=== PATIENT | male | born 1990 | race Caucasian/White ===

== ENCOUNTER 2018-08-30 16:11 | Inpatient (IN) | payer MEDICARE, OTHER ==
[2018-08-30 18:20] LABS: Basophils # (A) 0.1 k/uL (0-0.2); Basophils % (A) 1 %; Eosinophils # (A) 0.2 k/uL (0-0.7); Eosinophils % (A) 1 %; HGB 14.8 gm/dL (13.0-17.5); Lymphocytes # (A) 3.6 k/uL (1.0-4.8); Lymphocytes % (A) 27 %; MCH 30.7 pg (25.0-35.0); MCHC 32.9 g/dL (31.0-37.0); MCV 93.2 fL (80.0-100.0); Mean Platelet Volume 7.5; Monocytes % (A) 7 %; Neutrophils # (A) 8.4 k/uL (1.3-7.7); Neutrophils % (A) 62 %; Platelet Count 323 k/uL (150-450); RBC 4.83 m/uL (4.30-5.90); RDW 13.9 % (11.5-15.5); WBC 13.5 k/uL (3.8-10.6)
[2018-08-30 18:25] LABS: Appearance,Urine Clear (Clear); Bilirubin,Urine Negative (Negative); Blood,Urine Negative (Negative); Color,Urine Yellow; Glucose,Urine (UA) Negative (Negative); Ketones,Urine Negative (Negative); Leukocyte Esterase,Urine Negative (Negative); Nitrite,Urine Negative (Negative); PH, Urine 5.5 (5.0-8.0); Protein,Urine Trace (Negative); Specific Gravity,Urine 1.037 (1.001-1.035); Urobilinogen,Urine <2.0 mg/dL (<2.0)
[2018-08-30 18:28] LABS: Partial Thromboplastin Time 23.3 sec (22.0-30.0); Prothrombin Time 10.5 sec (9.0-12.0)
[2018-08-30 18:32] LABS: ALT 145 U/L (21-72); AST 71 U/L (17-59); African American GFR (CKD) >90 (>60 ml/min/1.73 sqM); Albumin 4.5 g/dL (3.5-5.0); Alcohol <10 mg/dL; Alkaline Phosphatase 62 U/L (38-126); Anion Gap 8 mmol/L; Blood Urea Nitrogen 11 mg/dL (9-20); Calcium 9.6 mg/dL (8.4-10.2); Carbon Dioxide 24 mmol/L (22-30); Chloride 110 mmol/L (98-107); Creatine Kinase 484 U/L (55-170); Glucose 115 mg/dL (74-99); Potassium 4.4 mmol/L (3.5-5.1); Sodium 142 mmol/L (137-145); Total Bilirubin 0.9 mg/dL (0.2-1.3); Total Protein 7.4 g/dL (6.3-8.2)
[2018-08-30 18:34] LABS: Amphetamine Screen,Urine Not Detected (NotDetected); Barbiturate Screen,Urine Not Detected (NotDetected); Benzodiazepines Screen,Urine Not Detected (NotDetected); Cocaine Screen,Urine Not Detected (NotDetected); Methadone Screen, Urine Not Detected (NotDetected); Opiate Screen,Urine Not Detected (NotDetected); Oxycodone Screen, Urine Not Detected (NotDetected); Phencyclidine Screen,Urine Not Detected (NotDetected); Tricyclic Antidepressant,Urine Not Detected (NotDetected); Urn Cannabinoid Scrn Detected (NotDetected)
[2018-08-30] MEDS ORDERED: SODIUM CHLORIDE 0.9% 1,000 ML IV ONE (18:59)
--- NOTE | 2018-08-30 18:59 | CT ---
EXAMINATION TYPE: CT brain wo con DATE OF EXAM: 08/30/2018 COMPARISON: None HISTORY: Altered mental status. CT DLP: 1201.4 mGycm. Automated Exposure Control for Dose Reduction was Utilized. TECHNIQUE: CT scan of the head is performed without contrast. FINDINGS: There is no acute intracranial hemorrhage, mass effect, or midline shift identified. The ventricles and sulci are within normal limits in size. The globes are intact and the visualized sin uses are clear. IMPRESSION: No acute intracranial hemorrhage, mass effect, or midline shift is seen.
--- NOTE | 2018-08-30 18:59 | XR ---
EXAMINATION TYPE: XR chest 2V DATE OF EXAM: 08/30/2018 COMPARISON: NONE HISTORY: Altered mental status, chest pain and shortness of breath TECHNIQUE: Frontal and lateral views of the chest are obtained. FINDINGS: There are overlying cardiac leads. Patient is rotated. There is no focal air space opacity, pleural effusion, or pneumothorax seen. The cardiac silhouette size is within normal limits. The osseous structures are intact. IMPRESSION: No acute cardiopulmonary process.
[2018-08-30] MEDS ORDERED: LACTULOSE 20 GM/30 ML CUP PO ONE (19:23)
[2018-08-30 19:25] LABS: Acetaminophen <10.0 ug/mL; Salicylate <1.0 mg/dL
--- NOTE | 2018-08-30 19:43 | ED ---
Psych HPI - General Chief Complaint: Psychiatric Symptoms Stated Complaint: Mental Health Time Seen by Provider: 08/30/18 16:37 Source: patient Mode of arrival: ambulatory - History of Present Illness Initial Comments: 28-year-old male with past medical history of previous brief psychotic event presents today with mother and father for chief complaint of hallucinations. 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 He cannot hear he does not hearing aids. Mother states that he has been saying that there is a devil inside of him and other people. He denies any suicidal or homicidal ideation but states he does not feel safe. She states that he has been acting bizarre and paranoid. She states he act this way last year around July and was discharged with diagnosis of psychosis. She states he was hospitalized at that time. She states he did elevation of his creatinine kinase, otherwise upon discharge in July she states there is no lab abnormalities to her knowledge. She states patient does get routine lab work done at Hospital. Mother denies patient take any medications. Patient denies taking her ingesting any medication attempt of suicide. Upon arrival patient is pleasant, he is able to write down responses. He is alert and oriented x 3, appearing well, nontoxic. However patient is stating that there are multiple to many personalities inside of him. At times his brain does not make sense, similar to word salad. Remaining review of systems negative patient is a chest pain shortness of breath nausea vomiting diarrhea abdominal pain headache dizziness stiffness or fever. - Related Data Home Medications Medication Instructions Recorded Confirmed No Known Home Medications 08/30/18 08/30/18 Allergies Allergy/AdvReac Type Severity Reaction Status Date / Time cefaclor [From Ceclor] Allergy Unknown Verified 08/30/18 16:53 Review of Systems ROS Statement: Those systems with pertinent positive or pertinent negative responses have been documented in the HPI. ROS Other: All systems not noted in ROS Statement are negative. 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 No nystagmus. There is normal conjunctiva bilaterally. No signs of icterus. Ears, nose, mouth and throat: There are moist mucous membranes and no oral lesions. Neck: The neck is supple, there is no tenderness or JVD. Cardiovascular: There is a regular rate and rhythm. No murmur, rub or gallop is appreciated. Respiratory: Lungs are clear to auscultation, respirations are non-labored, breath sounds are equal. No wheezes, stridor, rales, or rhonchi. Gastrointestinal: Soft, non-distended, non-tender abdomen without masses or organomegaly noted. There is no rebound or guarding present. No CVA tenderness. Bowel sounds are unremarkable. Musculoskeletal: Normal ROM, no tenderness. Strength 5/5. Sensation intact. Radial pulses equal bilaterally 2+. Neurological: A&O x 3. CN II-XII intact, aside from CN VIII, There are no obvious motor or sensory deficits. Coordination appears grossly intact. Speech is normal. Skin: Skin is warm and dry and no rashes or lesions are noted. Psychiatric: She is playing the air guitar, lip singing, smiling, pleasant Limitations: no limitations Course Vital Signs 08/30/18 08/30/18 16:22 18:19 Temperature 98.7 F 98.6 F Pulse Rate 107 H 105 H Respiratory 18 18 Rate Blood Pressure 182/125 147/87 O2 Sat by Pulse 95 98 Oximetry Medical Decision Making - Medical Decision Making . 28-year-old male presenting for psychosis via parents. Patient has auditory hallucinations. Patient tells me he has multiple personalities is too many within him. Patient appears well and nontoxic. Patient is hypertensive upon arrival. CT of the brain without any acute abnormalities. Patient does have slightly elevated ammonia levels. As well as transaminases. No evidence of liver failure. Negative salicylate and acetaminophen levels. Elevated creatinine kinase however urinalysis unremarkable. EKG no acute normality is troponin negative. Chest x-ray within normal limits. No lower extremity edema or evidence of shortness of breath and examination. Anion gap within normal limits. This time is unclear the cause the patient's psychosis, could be primary site gastric however was admitted to medicine for withdrawal of organic cause. I do not feel patient's ammonia level of 44 would cause encephalopathy however patient was given lactulose. Patient be reassessed. Patient neurological examination alert with no focal deficits. No signs of meningeal irritation or infection on exam. Patient abdominal exam benign lungs clear to auscultation. Patient was hypertensive upon arrival. Patient denies past medical history of hypertension. Patient not currently on any medication. Discussed the case with any provider Dr. Park revealed patient to be admitted to medicine with psychiatric consultation. Dr. Liang accepted admission and very patient in the emergency department. Patient was transferred to the floor in stable condition appearing well patient's parents were agreeable to admission at this time. - Lab Data Result diagrams: 08/30/18 18:08 08/30/18 18:08 Lab Results 08/30/18 08/30/18 08/30/18 Range/Units 18:08 18:08 18:08 WBC 13.5 H (3.8-10.6) k/uL RBC 4.83 (4.30-5.90) m/uL Hgb 14.8 (13.0-17.5) gm/dL Hct 45.0 (39.0-53.0) % MCV 93.2 (80.0-100.0) fL MCH 30.7 (25.0-35.0) pg MCHC 32.9 (31.0-37.0) g/dL RDW 13.9 (11.5-15.5) % Plt Count 323 (150-450) k/uL Neutrophils % 62 % Lymphocytes % 27 % Monocytes % 7 % Eosinophils % 1 % Basophils % 1 % Neutrophils # 8.4 H (1.3-7.7) k/uL Lymphocytes # 3.6 (1.0-4.8) k/uL Monocytes # 1.0 (0-1.0) k/uL Eosinophils # 0.2 (0-0.7) k/uL Basophils # 0.1 (0-0.2) k/uL PT (9.0-12.0) sec INR (<1.2) APTT (22.0-30.0) sec Sodium 142 (137-145) mmol/L Potassium 4.4 (3.5-5.1) mmol/L Chloride 110 H (98-107) mmol/L Carbon Dioxide 24 (22-30) mmol/L Anion Gap 8 mmol/L BUN 11 (9-20) mg/dL Creatinine 0.54 L (0.66-1.25) mg/dL Est GFR (CKD-EPI)AfAm >90 (>60 ml/min/1.73 sqM) Est GFR (CKD-EPI)NonAf >90 (>60 ml/min/1.73 sqM) Glucose 115 H (74-99) mg/dL Calcium 9.6 (8.4-10.2) mg/dL Total Bilirubin 0.9 (0.2-1.3) mg/dL AST 71 H (17-59) U/L ALT 145 H (21-72) U/L Alkaline Phosphatase 62 (38-126) U/L Ammonia 47 H (<30) umol/L Creatine Kinase 484 H (55-170) U/L Troponin I (0.000-0.034) ng/mL Total Protein 7.4 (6.3-8.2) g/dL Albumin 4.5 (3.5-5.0) g/dL Urine Color Urine Appearance (Clear) Urine pH (5.0-8.0) Ur Specific [place] (1.001-1.035) Urine Protein (Negative) Urine Glucose (UA) (Negative) Urine Ketones (Negative) Urine Blood (Negative) Urine Nitrite (Negative) Urine Bilirubin (Negative) Urine Urobilinogen (<2.0) mg/dL Ur Leukocyte Esterase (Negative) Salicylates mg/dL Urine Opiates Screen (NotDetected) Ur Oxycodone Screen (NotDetected) Urine Methadone Screen (NotDetected) Ur Propoxyphene Screen (NotDetected) Acetaminophen ug/mL Ur Barbiturates Screen (NotDetected) U Tricyclic Antidepress (NotDetected) Ur Phencyclidine Scrn (NotDetected) Ur Amphetamines Screen (NotDetected) U Methamphetamines Scrn (NotDetected) U Benzodiazepines Scrn (NotDetected) Urine Cocaine Screen (NotDetected) U Marijuana (THC) Screen (NotDetected) Serum Alcohol <10 mg/dL 08/30/18 08/30/18 08/30/18 Range/Units 18:08 18:08 18:08 WBC (3.8-10.6) k/uL RBC (4.30-5.90) m/uL Hgb (13.0-17.5) gm/dL Hct (39.0-53.0) % MCV (80.0-100.0) fL MCH (25.0-35.0) pg MCHC (31.0-37.0) g/dL RDW (11.5-15.5) % Plt Count (150-450) k/uL Neutrophils % % Lymphocytes % % Monocytes % % Eosinophils % % Basophils % % Neutrophils # (1.3-7.7) k/uL Lymphocytes # (1.0-4.8) k/uL Monocytes # (0-1.0) k/uL Eosinophils # (0-0.7) k/uL Basophils # (0-0.2) k/uL PT 10.5 (9.0-12.0) sec INR 1.0 (<1.2) APTT 23.3 (22.0-30.0) sec Sodium (137-145) mmol/L Potassium (3.5-5.1) mmol/L Chloride (98-107) mmol/L Carbon Dioxide (22-30) mmol/L Anion Gap mmol/L BUN (9-20) mg/dL Creatinine (0.66-1.25) mg/dL Est GFR (CKD-EPI)AfAm (>60 ml/min/1.73 sqM) Est GFR (CKD-EPI)NonAf (>60 ml/min/1.73 sqM) Glucose (74-99) mg/dL Calcium (8.4-10.2) mg/dL Total Bilirubin (0.2-1.3) mg/dL AST (17-59) U/L ALT (21-72) U/L Alkaline Phosphatase (38-126) U/L Ammonia (<30) umol/L Creatine Kinase (55-170) U/L Troponin I <0.012 (0.000-0.034) ng/mL Total Protein (6.3-8.2) g/dL Albumin (3.5-5.0) g/dL Urine Color Urine Appearance (Clear) Urine pH (5.0-8.0) Ur Specific [place] (1.001-1.035) Urine Protein (Negative) Urine Glucose (UA) (Negative) Urine Ketones (Negative) Urine Blood (Negative) Urine Nitrite (Negative) Urine Bilirubin (Negative) Urine Urobilinogen (<2.0) mg/dL Ur Leukocyte Esterase (Negative) Salicylates <1.0 mg/dL Urine Opiates Screen (NotDetected) Ur Oxycodone Screen (NotDetected) Urine Methadone Screen (NotDetected) Ur Propoxyphene Screen (NotDetected) Acetaminophen <10.0 ug/mL Ur Barbiturates Screen (NotDetected) U Tricyclic Antidepress (NotDetected) Ur Phencyclidine Scrn (NotDetected) Ur Amphetamines Screen (NotDetected) U Methamphetamines Scrn (NotDetected) U Benzodiazepines Scrn (NotDetected) Urine Cocaine Screen (NotDetected) U Marijuana (THC) Screen (NotDetected) Serum Alcohol mg/dL 08/30/18 Range/Units 18:14 WBC (3.8-10.6) k/uL RBC (4.30-5.90) m/uL Hgb (13.0-17.5) gm/dL Hct (39.0-53.0) % MCV (80.0-100.0) fL MCH (25.0-35.0) pg MCHC (31.0-37.0) g/dL RDW (11.5-15.5) % Plt Count (150-450) k/uL Neutrophils % % Lymphocytes % % Monocytes % % Eosinophils % % Basophils % % Neutrophils # (1.3-7.7) k/uL Lymphocytes # (1.0-4.8) k/uL Monocytes # (0-1.0) k/uL Eosinophils # (0-0.7) k/uL Basophils # (0-0.2) k/uL PT (9.0-12.0) sec INR (<1.2) APTT (22.0-30.0) sec Sodium (137-145) mmol/L Potassium (3.5-5.1) mmol/L Chloride (98-107) mmol/L Carbon Dioxide (22-30) mmol/L Anion Gap mmol/L BUN (9-20) mg/dL Creatinine (0.66-1.25) mg/dL Est GFR (CKD-EPI)AfAm (>60 ml/min/1.73 sqM) Est GFR (CKD-EPI)NonAf (>60 ml/min/1.73 sqM) Glucose (74-99) mg/dL Calcium (8.4-10.2) mg/dL Total Bilirubin (0.2-1.3) mg/dL AST (17-59) U/L ALT (21-72) U/L Alkaline Phosphatase (38-126) U/L Ammonia (<30) umol/L Creatine Kinase (55-170) U/L Troponin I (0.000-0.034) ng/mL Total Protein (6.3-8.2) g/dL Albumin (3.5-5.0) g/dL Urine Color Yellow Urine Appearance Clear (Clear) Urine pH 5.5 (5.0-8.0) Ur Specific [place] 1.037 H (1.001-1.035) Urine Protein Trace H (Negative) Urine Glucose (UA) Negative (Negative) Urine Ketones Negative (Negative) Urine Blood Negative (Negative) Urine Nitrite Negative (Negative) Urine Bilirubin Negative (Negative) Urine Urobilinogen <2.0 (<2.0) mg/dL Ur Leukocyte Esterase Negative (Negative) Salicylates mg/dL Urine Opiates Screen Not Detected (NotDetected) Ur Oxycodone Screen Not Detected (NotDetected) Urine Methadone Screen Not Detected (NotDetected) Ur Propoxyphene Screen Not Detected (NotDetected) Acetaminophen ug/mL Ur Barbiturates Screen Not Detected (NotDetected) U Tricyclic Antidepress Not Detected (NotDetected) Ur Phencyclidine Scrn Not Detected (NotDetected) Ur Amphetamines Screen Not Detected (NotDetected) U Methamphetamines Scrn Not Detected (NotDetected) U Benzodiazepines Scrn Not Detected (NotDetected) Urine Cocaine Screen Not Detected (NotDetected) U Marijuana (THC) Screen Detected H (NotDetected) Serum Alcohol mg/dL Disposition Clinical Impression: Psychosis, Hallucinations, Increased ammonia level, Elevated blood pressure reading, Elevated transaminase level Disposition: ADMITTED IP TO THIS [facility] Condition: Stable Is patient prescribed a controlled substance at d/c from ED?: No Time of Disposition: 20:05
[2018-08-30] MEDS: SODIUM CHLORIDE 0.9% 1,000 ML IV SCH (19:56)
[2018-08-30] MEDS ORDERED: NALOXONE 0.4 MG/ML 1 ML VIAL IV PRN (20:02)
--- NOTE | 2018-08-31 03:07 | P.HPIM ---
History of Present Illness H&P Date: 08/30/18 Chief Complaint: Bizarre behavior 28-year-old male with history of brief psychosis Patient was brought into the hospital by his mother due to bizarre behavior and hallucinations. Patient is legally deaf since age of 6 months. Mother helped with communication with the ER doc. At time of my evaluation family was gone, information was obtained by discussing the case with the ER doctor's, and communicating with the patient using writing method. Patient indicated that he has thoughts and ideas and has had and he knows everything and he Indicates with the devil and that he has multiple personalities. He currently denies any physical complaints of chest pain trouble breathing fevers chills nausea abdominal pain muscle aches. He denies any substance abuse. In the ED was found to have elevated CK level and slightly elevated liver enzymes. His blood pressure readings were also high with no history of hypertension. Plan was to [facility] the [facility] to [facility] monitoring 24 hours follow-up on blood work and blood pressure. Once he is stable stable he would be evaluated by psychiatry for possible admission to the mental health unit Review of Systems Pertinent positives as noted in HPI. All other systems were reviewed and are negative Past Medical History Past Medical History: No Reported History Additional Past Medical History / Comment(s): spinal meningitis History of Any Multi-Drug Resistant Organisms: None Reported Past Surgical History: No Surgical Hx Reported Past Anesthesia/Blood Transfusion Reactions: No Reported Reaction Past Psychological History: No Psychological Hx Reported Smoking Status: Current every day smoker Past Alcohol Use History: Occasional Past Drug Use History: Marijuana - Past Family History Father Family Medical History: No Reported History Medications and Allergies Home Medications Medication Instructions Recorded Confirmed Type No Known Home Medications 08/30/18 08/30/18 History Allergies Allergy/AdvReac Type Severity Reaction Status Date / Time cefaclor [From Ceclor] Allergy Unknown Verified 08/30/18 16:53 Physical Exam Vitals: Vital Signs Temp Pulse Pulse Resp BP BP Pulse Ox 08/30/18 22:25 99 F 102 H 20 169/99 94 L 08/30/18 21:59 98.2 F 92 18 149/87 98 08/30/18 18:19 98.6 F 105 H 18 147/87 98 08/30/18 16:22 98.7 F 107 H 18 182/125 95 Intake and Output 0508/30/18 08/31/18 14:59 22:59 06:59 Other: Weight 175.177 kg Constitutional: No acute distress, patient is legally deaf and communicates by writing Eyes: Anicteric sclerae, moist conjunctiva, no lid-lag Pupils equal round reactive to light ENMT: NC/AT Oropharynx clear, no erythema, or exudates Neck: Supple, FROM, no masses, or JVD No carotid bruits No thyromegaly Lungs: Clear to auscultation Clear to percussion Normal respiratory effort, no accessory muscle use Cardiovascular: Heart regular in rate and rhythm, No murmurs, gallops, or rubs No peripheral edema Abdominal: Soft Nontender, no guarding, rebound or rigidity Abdomen moving with respiration Normoactive bowel sounds No hepatomegaly, No splenomegaly No palpable mass No abdominal wall hernia noted Skin: Normal temperature, tone, texture, turgor No induration No subcutaneous nodules No rash, lesions No ulcers Extremities: No digital cyanosis No clubbing Pedal pulses intact and symmetrical Radial pulses intact and symmetrical No calf tenderness Psychiatric: Alert and oriented to person, place and time Patient looks bad night and anxious fair judgment Neuro Muscles Strength 5/5 in all 4 extremities Sensation to light touch grossly present throughout Cranial nerves II-XII grossly intact, except for cranial nerve VIII patient is legally deaf No focal sensory deficits Lymphatics: no palpable cervical or supraclavicular , or inguinal lymph nodes Results CBC & Chem 7: 08/30/18 18:08 08/30/18 18:08 Labs: Abnormal Lab Results - Last 24 Hours (Table) 08/30/18 08/30/18 08/30/18 Range/Units 18:08 18:08 18:08 WBC 13.5 H (3.8-10.6) k/uL Neutrophils # 8.4 H (1.3-7.7) k/uL Chloride 110 H (98-107) mmol/L Creatinine 0.54 L (0.66-1.25) mg/dL Glucose 115 H (74-99) mg/dL AST 71 H (17-59) U/L ALT 145 H (21-72) U/L Ammonia 47 H (<30) umol/L Creatine Kinase 484 H (55-170) U/L Ur Specific [place] (1.001-1.035) Urine Protein (Negative) U Marijuana (THC) Screen (NotDetected) 08/30/18 Range/Units 18:14 WBC (3.8-10.6) k/uL Neutrophils # (1.3-7.7) k/uL Chloride (98-107) mmol/L Creatinine (0.66-1.25) mg/dL Glucose (74-99) mg/dL AST (17-59) U/L ALT (21-72) U/L Ammonia (<30) umol/L Creatine Kinase (55-170) U/L Ur Specific [place] 1.037 H (1.001-1.035) Urine Protein Trace H (Negative) U Marijuana (THC) Screen Detected H (NotDetected) Thrombosis Risk Factor Assmnt - Choose All That Apply Any of the Below Risk Factors Present?: Yes Each Factor Represents 1 point: Obesity (BMI >25) Other Risk Factors: No Other congenital or acquired thrombophilia - If yes, enter type in comment: No Thrombosis Risk Factor Assessment Total Risk Factor Score: 1 Thrombosis Risk Factor Assessment Level: Low Risk Assessment and Plan Assessment: 28-year-old male with history of psychosis. Patient admitted under observation with anticipated length symptoms in 48 hours to rule out rhabdomyolysis due to elevation of creatine kinase. 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 He is reporting some hallucinations he feels like a double his insight him and he has multiple personalities Plan: Bizarre behavior and hallucinations Legally deaf History of brief psychosis Elevated creatinine kinase Elevated blood pressure readings without history of hypertension Slightly elevated liver enzymes denies any alcohol intake or drug abuse Plan IV fluid hydration Monitor vital signs Follow-up creatinine kinase level Follow-up liver enzymes supple Psychiatry evaluation Once patient is medically cleared he will be transferred to the psych unit Patient denies any suicidal or homicidal ideation Surrogate decision-maker: Patient mother CODE STATUS: Full code DVT prophylaxis: Low risk and ambulatory Discussed with: Patient, ER, RN Anticipated discharge: Less than 48- hours Anticipated discharge place: Psych unit A total of 60 minutes was spent on the care of this complex patient more than 50% of the time was spent in counseling and care coordination.
[2018-08-31] MEDS: SODIUM CHLORIDE 0.9% 1,000 ML IV SCH ×3 (09:45→22:04)
[2018-08-31 10:12] LABS: African American GFR (CKD) >90 (>60 ml/min/1.73 sqM); Anion Gap 9 mmol/L; Blood Urea Nitrogen 10 mg/dL (9-20); Carbon Dioxide 23 mmol/L (22-30); Chloride 109 mmol/L (98-107); Glucose 91 mg/dL (74-99); Sodium 141 mmol/L (137-145); Total Bilirubin 1.8 mg/dL (0.2-1.3)
[2018-08-31 10:21] LABS: Potassium 4.2 mmol/L (3.5-5.1); Total Protein 7.5 g/dL (6.3-8.2)
[2018-08-31 10:22] LABS: ALT 157 U/L (21-72); AST 88 U/L (17-59); Albumin 4.5 g/dL (3.5-5.0); Alkaline Phosphatase 53 U/L (38-126); Creatine Kinase 397 U/L (55-170)
[2018-08-31] MEDS ORDERED: PANTOPRAZOLE 40 MG TABLET PO STA (14:39)
[2018-08-31] MEDS ORDERED: hydrALAZINE HCL 20 MG/ML 1 ML VIAL IVP STA (14:40)
--- NOTE | 2018-08-31 14:43 | P.PN ---
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 Mother is present is able to communicate via sign language. Patient still having hallucinations and communicating with individuals that are not visible. Patient's mother does report that he has had issues with his stomach pain worse with certain foods such as tomatoes or anything acidic. Review of records indicates patient's blood pressure is been elevated, patient does not go to see a doctor regularly. Liver studies also elevated, no acute events overnight Objective - Vital Signs Vital signs: Vital Signs Temp 99.0 F 08/31/18 12:39 Pulse 81 08/31/18 12:39 Resp 20 08/31/18 12:39 BP 154/109 08/31/18 13:50 Pulse Ox 96 08/31/18 12:39 Intake & Output 08/30/18 08/31/18 08/31/18 18:59 06:59 18:59 Intake Total 1000 Balance 1000 Weight 178.443 kg 175.177 kg Intake: Oral 1000 Other: # Voids 5 4 - Exam Constitutional: No acute distress, conversant, pleasant Eyes: Anicteric sclerae, moist conjunctiva, no lid-lag, PERRLA ENMT: NC/AT,Oropharynx clear, no erythema, exudates Neck:Supple, FROM, no masses, or JVD, No carotid bruits; No thyromegaly Lungs: Clear to auscultation, Clear to percussion, Normal respiratory effort, no accessory muscle use Cardiovascular: Heart regular in rate and rhythm, No murmurs, gallops, or rubs no peripheral edema Abdominal: Soft Nontender, nom distended, no guarding, no rebound or rigidity, Normoactive bowel sounds No hepatomegaly, No splenomegaly, No palpable mass No abdominal wall hernia noted Skin: Normal temperature, tone, texture, turgor, No induration No subcutaneous nodules, No rash, lesions, No ulcers Extremities:No digital cyanosis No clubbing, Pedal pulses intact and symmetrical Radial pulses intact and symmetrical Normal gait and station, No calf tenderness Psychiatric: Having hallucinations Neuro: Muscles Strength 5/5 in all 4 extremities, Sensation to light touch grossly present throughout, Cranial nerves II-XII grossly intact. No focal sensory deficits - Labs CBC & Chem 7: 08/30/18 18:08 08/31/18 08:11 Labs: Abnormal Lab Results - Last 24 Hours (Table) 08/30/18 08/30/18 08/30/18 Range/Units 18:08 18:08 18:08 WBC 13.5 H (3.8-10.6) k/uL Neutrophils # 8.4 H (1.3-7.7) k/uL Chloride 110 H (98-107) mmol/L Creatinine 0.54 L (0.66-1.25) mg/dL Glucose 115 H (74-99) mg/dL Total Bilirubin (0.2-1.3) mg/dL AST 71 H (17-59) U/L ALT 145 H (21-72) U/L Ammonia 47 H (<30) umol/L Creatine Kinase 484 H (55-170) U/L Ur Specific [place] (1.001-1.035) Urine Protein (Negative) U Marijuana (THC) Screen (NotDetected) 08/30/18 08/31/18 Range/Units 18:14 08:11 WBC (3.8-10.6) k/uL Neutrophils # (1.3-7.7) k/uL Chloride 109 H (98-107) mmol/L Creatinine 0.59 L (0.66-1.25) mg/dL Glucose (74-99) mg/dL Total Bilirubin 1.8 H (0.2-1.3) mg/dL AST 88 H (17-59) U/L ALT 157 H (21-72) U/L Ammonia (<30) umol/L Creatine Kinase 397 H (55-170) U/L Ur Specific [place] 1.037 H (1.001-1.035) Urine Protein Trace H (Negative) U Marijuana (THC) Screen Detected H (NotDetected) Assessment and Plan (1) Essential hypertension Narrative/Plan: * Blood pressures continue to be elevated we will initiate chlorthalidone regimen Current Visit: Yes Status: Acute Code(s): I10 - ESSENTIAL (PRIMARY) HYPERTENSION SNOMED Code(s): 13307859 (2) GERD (gastroesophageal reflux disease) Narrative/Plan: * PPI therapy with Protonix will be initiated today Current Visit: Yes Status: Acute Code(s): K21.9 - GASTRO-ESOPHAGEAL REFLUX DISEASE WITHOUT ESOPHAGITIS SNOMED Code(s): 145222872 (3) Elevated transaminase level Narrative/Plan: * We'll order right upper quadrant ultrasound to rule out hepatobiliary disease would expect some fatty liver * Patient has an elevated T bili at 1.8 despite being on IV fluids * We'll make patient nothing by mouth at midnight Current Visit: Yes Status: Acute Code(s): R74.0 - NONSPEC ELEV OF LEVELS OF TRANSAMNS & LACTIC ACID DEHYDRGNSE SNOMED Code(s): 888612380 (4) Hyperbilirubinemia Narrative/Plan: * Continue IVF and monitor with recheck tomorrow Current Visit: Yes Status: Acute Code(s): E80.6 - OTHER DISORDERS OF BILIRUBIN METABOLISM SNOMED Code(s): 41212726 (5) Hallucinations Narrative/Plan: * Awaiting psychiatric evaluation Current Visit: Yes Status: Acute Code(s): R44.3 - HALLUCINATIONS, UNSPECIFIED SNOMED Code(s): 6458744 Plan: Disposition anticipated discharge 1-2 days
[2018-08-31] MEDS: amLODIPine 5 MG TAB PO SCH (22:02)
[2018-08-31] MEDS: MELATONIN 3 MG TABLET PO SCH (22:02)
[2018-08-31] MEDS ORDERED: HALOPERIDOL LACTATE 5 MG/ML 1 ML VIAL IM STA (22:45)
[2018-09-01] MEDS ORDERED: HALOPERIDOL LACTATE 5 MG/ML 1 ML VIAL IM STA (02:23)
[2018-09-01] MEDS: PANTOPRAZOLE 40 MG TABLET PO SCH (08:17)
[2018-09-01] MEDS: amLODIPine 5 MG TAB PO SCH (08:17)
[2018-09-01] MEDS: CHLORTHALIDONE 25 MG TAB PO SCH (08:17)
--- NOTE | 2018-09-01 08:28 | US ---
EXAMINATION TYPE: US abdomen limited DATE OF EXAM: 09/01/2018 COMPARISON: NONE CLINICAL HISTORY: Transaminitis, hyperbilirubinemia. EXAM MEASUREMENTS: Liver Length: 25.0 cm Gallbladder Wall: 0.4 cm CBD: 0.6 cm Right Kidney: 13.5 x 6.4 x 6.3 cm Patient deaf, unable to communicate with examiner, unable to roll LLD, unable to hold breath. Patient repeatedly half sat up while examiner was trying to scan. Technically limited study. Pancreas: Obscured by bowel gas Liver: Increased attenuation, decreased visualization of vessels, unable to penetrate, enlarged Gallbladder: not well visualized Evidence for sonographic Solares's sign: no CBD: wnl as seen, very limited view Right Kidney: wnl as seen, very limited views IMPRESSION: 1. Hepatic steatosis.
[2018-09-01] MEDS: SODIUM CHLORIDE 0.9% 1,000 ML IV SCH ×2 (08:46→21:37)
--- NOTE | 2018-09-01 10:23 | P.PN ---
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 marinelli was called and the patient was redirected to his room and given Haldol. Patient's blood pressure is improved but is still elevated , right upper quadrant ultrasound performed showing fatty liver today's labs are pending Objective - Vital Signs Vital signs: Vital Signs Temp 98.5 F 09/01/18 04:42 Pulse 100 09/01/18 04:42 Resp 22 09/01/18 04:42 BP 166/82 09/01/18 04:42 Pulse Ox 98 09/01/18 04:42 Intake & Output 08/31/18 09/01/18 09/01/18 18:59 06:59 18:59 Weight 177.5 kg Other: Voiding Method Toilet Toilet # Voids 2 4 - Exam Constitutional: No acute distress, conversant, pleasant Eyes: Anicteric sclerae, moist conjunctiva, no lid-lag, PERRLA ENMT: NC/AT,Oropharynx clear, no erythema, exudates Neck:Supple, FROM, no masses, or JVD, No carotid bruits; No thyromegaly Lungs: Clear to auscultation, Clear to percussion, Normal respiratory effort, no accessory muscle use Cardiovascular: Heart regular in rate and rhythm, No murmurs, gallops, or rubs no peripheral edema Abdominal: Soft Nontender, nom distended, no guarding, no rebound or rigidity, Normoactive bowel sounds No hepatomegaly, No splenomegaly, No palpable mass No abdominal wall hernia noted Skin: Normal temperature, tone, texture, turgor, No induration No subcutaneous nodules, No rash, lesions, No ulcers Extremities:No digital cyanosis No clubbing, Pedal pulses intact and symmetrical Radial pulses intact and symmetrical Normal gait and station, No calf tenderness Psychiatric: Having hallucinations Neuro: Muscles Strength 5/5 in all 4 extremities, Sensation to light touch grossly present throughout, Cranial nerves II-XII grossly intact. No focal sensory deficits - Labs CBC & Chem 7: 09/01/18 11:03 09/01/18 11:03 Labs: Abnormal Lab Results - Last 24 Hours (Table) 08/31/18 Range/Units 08:11 Chloride 109 H (98-107) mmol/L Creatinine 0.59 L (0.66-1.25) mg/dL Total Bilirubin 1.8 H (0.2-1.3) mg/dL AST 88 H (17-59) U/L ALT 157 H (21-72) U/L Creatine Kinase 397 H (55-170) U/L Assessment and Plan (1) Essential hypertension Narrative/Plan: * Blood pressures continue to be elevated but are improved * Continue chlorthalidone will add Norvasc 10 mg daily Current Visit: Yes Status: Chronic Code(s): I10 - ESSENTIAL (PRIMARY) HYPERTENSION SNOMED Code(s): 70303115 (2) GERD (gastroesophageal reflux disease) Narrative/Plan: * PPI therapy with Protonix will be initiated today Current Visit: Yes Status: Acute Code(s): K21.9 - GASTRO-ESOPHAGEAL REFLUX DISEASE WITHOUT ESOPHAGITIS SNOMED Code(s): 809869492 (3) Elevated transaminase level Narrative/Plan: * We'll order right upper quadrant ultrasound to rule out hepatobiliary disease would expect some fatty liver * Patient has an elevated T bili at 1.8 despite being on IV fluids * We'll make patient nothing by mouth at midnight Current Visit: Yes Status: Acute Code(s): R74.0 - NONSPEC ELEV OF LEVELS OF TRANSAMNS & LACTIC ACID DEHYDRGNSE SNOMED Code(s): 228083612 (4) Fatty liver Current Visit: Yes Status: Acute Code(s): K76.0 - FATTY (CHANGE OF) LIVER, NOT ELSEWHERE CLASSIFIED SNOMED Code(s): 547235423 (5) Bipolar 1 disorder, manic, mild Narrative/Plan: * Patient seen by psychology reporting manic type symptoms * Initiated on treatment with Risperdal and Depakote * Reportedly not candidate for 3 W at this time despite patient's ongoing hallucinations and psychosis * I suppose we will have to titrate medications to relieve the patient's liudmila and hallucinations here prior to discharge Current Visit: Yes Status: Acute Code(s): F31.11 - BIPOLAR DISORD, CRNT EPISODE MANIC W/O PSYCH FEATURES, MILD SNOMED Code(s): 81611753 (6) Hyperbilirubinemia Narrative/Plan: * Continue IVF now resolved Current Visit: Yes Status: Resolved Code(s): E80.6 - OTHER DISORDERS OF BILIRUBIN METABOLISM SNOMED Code(s): 97923595
[2018-09-01] MEDS ORDERED: amLODIPine 10 MG TAB PO STA (10:45)
[2018-09-01 11:37] LABS: Basophils % (A) 0 %; Eosinophils % (A) 0 %; HGB 15.1 gm/dL (13.0-17.5); Lymphocytes # (A) 1.7 k/uL (1.0-4.8); Lymphocytes % (A) 15 %; MCH 30.8 pg (25.0-35.0); MCHC 32.9 g/dL (31.0-37.0); MCV 93.7 fL (80.0-100.0); Mean Platelet Volume 7.3; Monocytes # (A) 0.6 k/uL (0-1.0); Monocytes % (A) 5 %; Neutrophils # (A) 8.9 k/uL (1.3-7.7); Neutrophils % (A) 78 %; Platelet Count 303 k/uL (150-450); RBC 4.91 m/uL (4.30-5.90); RDW 14.1 % (11.5-15.5); WBC 11.4 k/uL (3.8-10.6)
[2018-09-01 11:54] LABS: ALT 161 U/L (21-72); AST 80 U/L (17-59); African American GFR (CKD) >90 (>60 ml/min/1.73 sqM); Albumin 4.8 g/dL (3.5-5.0); Alkaline Phosphatase 63 U/L (38-126); Anion Gap 12 mmol/L; Blood Urea Nitrogen 8 mg/dL (9-20); Calcium 9.4 mg/dL (8.4-10.2); Carbon Dioxide 23 mmol/L (22-30); Chloride 104 mmol/L (98-107); Cholesterol 164 mg/dL (<200); Glucose 162 mg/dL (74-99); HDL Cholesterol 37 mg/dL (40-60); LDL Cholesterol,Calculated 105 mg/dL (0-99); Sodium 139 mmol/L (137-145); Total Bilirubin 1.3 mg/dL (0.2-1.3); Total Protein 7.8 g/dL (6.3-8.2); Triglycerides 112 mg/dL (<150)
[2018-09-01 11:55] LABS: Potassium 3.9 mmol/L (3.5-5.1)
--- NOTE | 2018-09-01 11:55 | P.CN ---
Psychiatric Consult - . Consult date: 09/01/18 Consult:: 09/01/18 11:47 Hallucinations Assessment and Plan (1) Bipolar 1 disorder, manic, mild Narrative/Plan: This is a 28-year-old male with past medical history of brief psychotic event presents today with mother and father for chief complaint of hallucinations. 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 He cannot hear he does not have hearing aids. Mother states that he has been saying that there is a devil inside of him and other people. He denies any suicidal or homicidal ideation but states he does not feel safe. She states that he has been acting bizarre and paranoid. She states he act this way last year around July and was discharged with diagnosis of psychosis. She states he was hospitalized at that time. She states he did elevation of his creatinine kinase, otherwise upon discharge in July she states there is no lab abnormalities to her knowledge. She states patient does get routine lab work done at Hospital. Mother denies patient take any medications. Patient denies taking her ingesting any medication attempt of suicide. Upon arrival patient is pleasant, he is able to write down responses. He is alert and oriented x 3, appearing well, nontoxic. However patient is stating that there are multiple to many personalities inside of him. At times his brain does not make sense, similar to word salad. Remaining review of systems negative patient is a chest pain shortness of breath nausea vomiting diarrhea abdominal pain headache dizziness stiffness or fever. - Related Data Home Medications Medication Instructions Recorded Confirmed No Known Home Medications 08/30/18 08/30/18 Allergies Allergy/AdvReac Type Severity Reaction Status Date / Time cefaclor [From Ceclor] Allergy Unknown Verified 08/30/18 16:53 Past Medical History Past Medical History: No Reported History Additional Past Medical History / Comment(s): spinal meningitis History of Any Multi-Drug Resistant Organisms: None Reported Past Surgical History: No Surgical Hx Reported Past Psychological History: No Psychological Hx Reported Smoking Status: Current every day smoker Past Alcohol Use History: Occasional Past Drug Use History: Marijuana General Exam - General Exam Comments Initial Comments: General: The patient is awake and alert, in no distress Eye: +3 mm pupils are equal, round and reactive to light, extra-ocular movements are intact. No nystagmus. There is normal conjunctiva bilaterally. No signs of icterus. Ears, nose, mouth and throat: There are moist mucous membranes and no oral lesions. Neck: The neck is supple, there is no tenderness or JVD. Cardiovascular: There is a regular rate and rhythm. No murmur, rub or gallop is appreciated. Respiratory: Lungs are clear to auscultation, respirations are non-labored, breath sounds are equal. No wheezes, stridor, rales, or rhonchi. Gastrointestinal: Soft, non-distended, non-tender abdomen without masses or organomegaly noted. There is no rebound or guarding present. No CVA tenderness. Bowel sounds are unremarkable. Musculoskeletal: Normal ROM, no tenderness. Strength 5/5. Sensation intact. Radial pulses equal bilaterally 2+. Neurological: A&O x 3. CN II-XII intact, aside from CN VIII, There are no obvious motor or sensory deficits. Coordination appears grossly intact. Speech is normal. Skin: Skin is warm and dry and no rashes or lesions are noted. Psychiatric: he is playing the [employer] guitar, lip singing, smiling, pleasant Limitations: no limitations Mental status examination: This is a 28-year-old obese male who was unable to hear and I needed a patternmaker hand which was present in the room. His general appearance was casual just do not medical down looking older than his stated age. Speech and language nonexistent. Hearing nonexistent. Attitude and behavior cooperative somewhat irritable at times. Mood depressed 5 out of 10 anxious fearful hopelessness. Affect flat restricted. Orientation not to place time or situation. Thought content delusional at times talking about the Civil War that's going on at present and that Dante Dentonn his current president. Risk factors she denies suicidal or homicidal ideation. He does not hear any command hallucinations. Perception which is an interesting concept for this gentleman since he hears no voices he feels that there is something abnormal in his head and he talks about mood and delio planets girls kissing marijuana etc. but no voices tell him to do anything because he's never heard a voice. Thought process is circumstantial and tangential nature. Concentration and attention is impaired per observation and interview with the patient with the aid of the patternmaker hand. Recent remote memory are definitely impaired for past events is related history currently. His intelligence is average. Judgment fair insight poor. Psychiatric impression: Appears all likelihood this is a bipolar manic episode. Psychiatric recommendations: We'll start him on Risperdal 2 mg by mouth daily at bedtime and Depakote 250 mg extended release by mouth daily at bedtime. I referred the mother to [facility] Department of psychiatry in [facility] to work for the [facility] clinic where psychiatric residents could see him and on outpatient basis and modulate his med medication. He is not a candidate for [address] [place] [address] here at [facility]. This is an outpatient issue that can be dealt with on an outpatient basis. Thank you for the consult Nicholas Bradley D.O. PhD Current Visit: Yes Status: Acute Code(s): F31.11 - BIPOLAR DISORD, CRNT EPISODE MANIC W/O PSYCH FEATURES, MILD SNOMED Code(s): 36966477 Time with Patient: Less than 30
[2018-09-01] MEDS ORDERED: risperiDONE 2 MG TAB PO STA (17:08)
[2018-09-01] MEDS ORDERED: ARTIFICIAL TEARS-HYPROMELLOSE DROPS 15 ML BTL BOTH EYES PRN (19:20)
[2018-09-01 20:23] LABS: Hemoglobin A1C 5.4 % (4.0-6.0)
[2018-09-01] MEDS: MELATONIN 3 MG TABLET PO SCH (21:38)
[2018-09-01] MEDS: risperiDONE 2 MG TAB PO SCH (21:39)
[2018-09-01] MEDS: DIVALPROEX ER 250 MG TAB.ER.24H PO SCH (21:39)
[2018-09-02] MEDS: SODIUM CHLORIDE 0.9% 1,000 ML IV SCH ×3 (05:03→23:30)
[2018-09-02] MEDS: amLODIPine 10 MG TAB PO SCH (10:12)
[2018-09-02] MEDS: PANTOPRAZOLE 40 MG TABLET PO SCH (10:12)
[2018-09-02] MEDS: CHLORTHALIDONE 25 MG TAB PO SCH (10:12)
[2018-09-02] MEDS ORDERED: LISINOPRIL 10 MG TAB PO STA (19:13)
--- NOTE | 2018-09-02 19:15 | P.PN ---
Subjective Progress Note Date: 09/02/18 The patient was seen and examined at the bedside with the sign-assistant speech language pathologist. The patient reports no complaints though says that he doesn't like taking his psychiatric medications since they make him feel strange. Discussed this in length with the patient. He reported that he does not plan on taking the medications after discharge since he doesn't like how they make him feel. When informed him of the importance of taking his medications, the patient stated that he has a direct connection with God since he shares his birthday with danyel. When asked to elaborate, he stated that God communicates with him directly via antennas in his head and that he is his doctor. He thereby does not wish to take any conventional medications since god will heal him through his connection. He then stated that he often feels god tugging on him or pulling on him, especially as he tries to urinate. He is thereby certain of his connection with God. He otherwise denied any active complaints. Denied chest pain, fever, chills, shortness of breath, nausea, or vomiting. Objective - Vital Signs Vital signs: Vital Signs Temp 98.6 F 09/02/18 14:24 Pulse 117 H 09/02/18 14:24 Resp 18 09/02/18 15:09 BP 139/89 09/02/18 14:24 Pulse Ox 94 L 09/02/18 14:24 Intake & Output 09/02/18 09/02/18 09/03/18 06:59 18:59 06:59 Weight 172.6 kg Other: Voiding Method Toilet # Voids 5 3 - Exam General: Non-toxic, in no acute distress, appears stated age, morbidly obese HEENT: NC/AT, anicteric sclerae, moist conjunctiva, no lid-lag, PERRLA Cardiovascular: S1/S2 wnl, no murmurs, rubs, or gallops Lungs: Clear to auscultation, normal respiratory effort, no accessory muscle use Abdominal: Soft, non-tender, non-distended, no guarding, rebound, or rigidity Skin: Warm, dry Extremities: No edema or contractures Psychiatric: Alert and oriented to person, place and time, religiously preoccupied, disorganized thought process Neuro: CN II-XII grossly intact, Strength 5/5 in all 4 extremities, Speech intact, Sensation to light touch grossly intact throughout - Labs CBC & Chem 7: 09/01/18 11:03 09/01/18 11:03 Assessment and Plan Plan: Bipolar 1 disorder, manic episode -Psychiatry recommendations appreciated -Discussed the interview with the psychiatry attending who notified that the patient is above the weight limit for the unit -We'll do a petition and certification for the patient in a.m. for likely transfer to another psych facility -Continue with Risperdal and Depakote Hypertension -C/w Norvasc and chlorthalidone Hepatic steatosis -Patient will need outpatient follow-up
[2018-09-02] MEDS: risperiDONE 2 MG TAB PO SCH (21:52)
[2018-09-02] MEDS: DIVALPROEX ER 250 MG TAB.ER.24H PO SCH (21:52)
[2018-09-02] MEDS: MELATONIN 3 MG TABLET PO SCH (21:52)
[2018-09-03] MEDS ORDERED: HALOPERIDOL LACTATE 5 MG/ML 1 ML VIAL IM PRN (03:01)
[2018-09-03] MEDS: SODIUM CHLORIDE 0.9% 1,000 ML IV SCH ×2 (07:20→20:10)
[2018-09-03] MEDS: amLODIPine 10 MG TAB PO SCH (07:23)
[2018-09-03] MEDS: PANTOPRAZOLE 40 MG TABLET PO SCH (07:23)
[2018-09-03] MEDS: CHLORTHALIDONE 25 MG TAB PO SCH (07:25)
[2018-09-03] MEDS ORDERED: LISINOPRIL 10 MG TAB PO SCH (09:00)
--- NOTE | 2018-09-03 09:53 | P.CN ---
Psychiatric Consult - . Consult date: 09/03/18 Consult:: 09/01/18 11:47 Hallucinations Assessment and Plan (1) Bipolar 1 disorder, manic, mild Narrative/Plan: This is a 28-year-old male with past medical history of brief psychotic event presents today with mother and father for chief complaint of hallucinations. 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 He cannot hear he does not have hearing aids. Mother states that he has been saying that there is a devil inside of him and other people. He denies any suicidal or homicidal ideation but states he does not feel safe. She states that he has been acting bizarre and paranoid. She states he act this way last year around July and was discharged with diagnosis of psychosis. She states he was hospitalized at that time. She states he did elevation of his creatinine kinase, otherwise upon discharge in July she states there is no lab abnormalities to her knowledge. She states patient does get routine lab work done at Hospital. Mother denies patient take any medications. Patient denies taking her ingesting any medication attempt of suicide. Upon arrival patient is pleasant, he is able to write down responses. He is alert and oriented x 3, appearing well, nontoxic. However patient is stating that there are multiple to many personalities inside of him. At times his brain does not make sense, similar to word salad. Remaining review of systems negative patient is a chest pain shortness of breath nausea vomiting diarrhea abdominal pain headache dizziness stiffness or fever. - Related Data Home Medications Medication Instructions Recorded Confirmed No Known Home Medications 08/30/18 08/30/18 Allergies Allergy/AdvReac Type Severity Reaction Status Date / Time cefaclor [From Ceclor] Allergy Unknown Verified 08/30/18 16:53 Past Medical History Past Medical History: No Reported History Additional Past Medical History / Comment(s): spinal meningitis History of Any Multi-Drug Resistant Organisms: None Reported Past Surgical History: No Surgical Hx Reported Past Psychological History: No Psychological Hx Reported Smoking Status: Current every day smoker Past Alcohol Use History: Occasional Past Drug Use History: Marijuana General Exam - General Exam Comments Initial Comments: General: The patient is awake and alert, in no distress Eye: +3 mm pupils are equal, round and reactive to light, extra-ocular movements are intact. No nystagmus. There is normal conjunctiva bilaterally. No signs of icterus. Ears, nose, mouth and throat: There are moist mucous membranes and no oral lesions. Neck: The neck is supple, there is no tenderness or JVD. Cardiovascular: There is a regular rate and rhythm. No murmur, rub or gallop is appreciated. Respiratory: Lungs are clear to auscultation, respirations are non-labored, breath sounds are equal. No wheezes, stridor, rales, or rhonchi. Gastrointestinal: Soft, non-distended, non-tender abdomen without masses or organomegaly noted. There is no rebound or guarding present. No CVA tenderness. Bowel sounds are unremarkable. Musculoskeletal: Normal ROM, no tenderness. Strength 5/5. Sensation intact. Radial pulses equal bilaterally 2+. Neurological: A&O x 3. CN II-XII intact, aside from CN VIII, There are no obvious motor or sensory deficits. Coordination appears grossly intact. Speech is normal. Skin: Skin is warm and dry and no rashes or lesions are noted. Psychiatric: he is playing the [employer] guitar, lip singing, smiling, pleasant Limitations: no limitations Mental status examination: This is a 28-year-old obese male who was unable to hear and I needed a wafer slicer which was present in the room. His general appearance was casual just do not medical down looking older than his stated age. Speech and language nonexistent. Hearing nonexistent. Attitude and behavior cooperative somewhat irritable at times. Mood depressed 5 out of 10 anxious fearful hopelessness. Affect flat restricted. Orientation not to place time or situation. Thought content delusional at times talking about the Civil War that's going on at present and that Dante Dentonn his current president. Risk factors she denies suicidal or homicidal ideation. He does not hear any command hallucinations. Perception which is an interesting concept for this gentleman since he hears no voices he feels that there is something abnormal in his head and he talks about mood and delio planets girls kissing marijuana etc. but no voices tell him to do anything because he's never heard a voice. Thought process is circumstantial and tangential nature. Concentration and attention is impaired per observation and interview with the patient with the aid of the wafer slicer. Recent remote memory are definitely impaired for past events is related history currently. His intelligence is average. Judgment fair insight poor. Psychiatric impression: Appears all likelihood this is a bipolar manic episode. Psychiatric recommendations: We'll start him on Risperdal 2 mg by mouth daily at bedtime and Depakote 250 mg extended release by mouth daily at bedtime. It is obvious by now that this young 28-year-old deaf mute needs inpatient care unfortunately cannot come to [facility] because he is over the weight limit. He has had a trial of the above medications without any success and seems to be more tense and irritable and needs a more thorough workup such as [facility] or [facility]. Highly recommend an application and first clinical certification for involuntary stay in a psych unit. Thank you for the consult Nicholas Bradley D.O. PhD Current Visit: Yes Status: Acute Priority: High Code(s): F31.11 - BIPOLAR DISORD, CRNT EPISODE MANIC W/O PSYCH FEATURES, MILD SNOMED Code(s): 22575803 Time with Patient: Less than 30
--- NOTE | 2018-09-03 19:55 | P.PN ---
Subjective Progress Note Date: 09/03/18 The patient was seen and examined at the bedside with the sign-language assistant on 09/03/2018. The patient continued to have severe delusions and disorganized thought process. Discussed with family at the bedside. He otherwise denied any active complaints. Denied chest pain, shortness of breath, fever, chills, nausea, or vomiting. Objective - Vital Signs Vital signs: Vital Signs Temp 98.5 F 09/03/18 14:00 Pulse 114 H 09/03/18 14:00 Resp 17 09/03/18 14:00 BP 146/88 09/03/18 14:00 Pulse Ox 96 09/03/18 14:00 Intake & Output 09/03/18 09/03/18 09/04/18 06:59 18:59 06:59 Intake Total 200 200 Balance 200 200 Intake: Oral 200 200 Other: Voiding Method Toilet # Voids 2 3 # Bowel Movements 0 - Exam General: Non-toxic, in no acute distress, appears stated age, morbidly obese HEENT: NC/AT, anicteric sclerae, moist conjunctiva, no lid-lag, PERRLA Cardiovascular: S1/S2 wnl, no murmurs, rubs, or gallops Lungs: Clear to auscultation, normal respiratory effort, no accessory muscle use Abdominal: Soft, non-tender, non-distended, no guarding, rebound, or rigidity Skin: Warm, dry Extremities: No edema or contractures Psychiatric: Alert and oriented to person, place and time, religiously preoccupied, disorganized thought process Neuro: CN II-XII grossly intact, Strength 5/5 in all 4 extremities, Speech intact, Sensation to light touch grossly intact throughout - Labs CBC & Chem 7: 09/01/18 11:03 09/01/18 11:03 Assessment and Plan Plan: Bipolar 1 disorder, manic episode -Psychiatry recommendations appreciated -Discussed the case in detail with who further recommended that the patient is above the weight limit for the unit and that he will need to be transferred to another facility -Completed a petition and certification for the patient -Continue with Risperdal and Depakote, as per psychiatry recommendations Hypertension -C/w Norvasc and chlorthalidone Hepatic steatosis -Patient will need outpatient follow-up
[2018-09-03] MEDS: DIVALPROEX ER 250 MG TAB.ER.24H PO SCH (20:09)
[2018-09-03] MEDS: HALOPERIDOL 5 MG TAB PO SCH (20:09)
[2018-09-03] MEDS: MELATONIN 3 MG TABLET PO SCH (20:10)
[2018-09-03] MEDS: ACETAMINOPHEN TAB 325 MG TAB PO PRN (20:10)
[2018-09-03] MEDS: traZODone HCL 100 MG TAB PO SCH (20:10)
[2018-09-04] MEDS: SODIUM CHLORIDE 0.9% 1,000 ML IV SCH ×2 (07:30→15:46)
[2018-09-04] MEDS: CHLORTHALIDONE 25 MG TAB PO SCH (07:33)
[2018-09-04] MEDS: HALOPERIDOL 5 MG TAB PO SCH ×2 (07:33→20:10)
[2018-09-04] MEDS: PANTOPRAZOLE 40 MG TABLET PO SCH (07:33)
[2018-09-04] MEDS: amLODIPine 10 MG TAB PO SCH (07:33)
--- NOTE | 2018-09-04 09:28 | P.PN ---
Subjective Progress Note Date: 09/04/18 Principal diagnosis: psychosis, rhabdomyolysis Patient was seen and examined. No acute events overnight. Help of shaker out at bedside. Patient complains of cramping in his right calf. He also has some delusional thoughts. States that he has dryness in his nose because of lack of humidity due to AC. Looking forward to taking a shower. He denies any chest pain, shortness of breath or palpitations. Objective - Vital Signs Vital signs: Vital Signs Temp 98.3 F 09/04/18 04:45 Pulse 107 H 09/04/18 04:45 Resp 20 09/04/18 04:45 BP 124/80 09/04/18 04:45 Pulse Ox 95 09/04/18 04:45 Intake & Output 09/03/18 09/04/18 09/04/18 18:59 06:59 18:59 Intake Total 200 1300 Balance 200 1300 Intake: Oral 200 1300 Other: Voiding Method Toilet # Voids 3 3 # Bowel Movements 0 - Exam General: [non toxic], [no distress], [appears at stated age] Derm: [warm], [dry] Head: [atraumatic], [normocephalic], [symmetric] Eyes: [EOMI], [no lid lag], [anicteric sclera] Mouth: [no lip lesion], [mucus membranes moist] Cardiovascular: [S1S2 reg], [tachycardia], [positive DP pulse bilateral], Lungs: [CTA bilateral], [no rhonchi, no rales] , [no accessory muscle use] Abdominal: [soft], [ nontender to palpation], [no guarding], [no appreciable organomegaly] Ext: [no gross muscle atrophy], [no edema], [no contractures] Neuro: [no focal neuro deficits] Psych: [Delusional thoughts, does not speak] - Labs CBC & Chem 7: 09/01/18 11:03 09/01/18 11:03 Assessment and Plan Assessment: Assessment and Plan 1. Bipolar type I disorder, manic episode 2. Elevated BP 3. Elevated CPK 4. Elevated LFT due to hepatic steatosis 5. Hyperlipidemia 1. Serum alcohol negative. UDS positive for marijuana. Plan: Evaluated by psychiatry, recommends transfer for inpatient psych due to weight limit. Continue Depakote, Haldol scheduled and as needed for agitation or acute psychosis. Continue trazodone. Follow social work for transfer. 2. BP 124/80. Continue chlorthalidone. Discontinue amlodipine and start Coreg due to tachycardia. Monitor vitals, adjust medications as necessary. 3. CPK 484 - 397. Renal function within normal limits. Plan: Continue normal saline at 100 mL per. Daily BMP and CPK. 4. AST 80, ALT 161. Abdominal ultrasound shows hepatic steatosis. Plan: Adequate outpatient follow-up. Low-fat diet. 5. Lipid panel shows LDL of 105, HDL 37. Plan: Adequate outpatient follow-up. Low-fat diet. Patient admitted for acute psychotic episode. Evaluated by psychiatry, requires inpatient but needs transfer due to weight restriction. Social work and performance manager following.
[2018-09-04] MEDS: CARVEDILOL 3.125 MG TAB PO SCH (15:46)
[2018-09-04] MEDS: DIVALPROEX ER 250 MG TAB.ER.24H PO SCH (20:10)
[2018-09-04] MEDS: MELATONIN 3 MG TABLET PO SCH (20:10)
[2018-09-04] MEDS: traZODone HCL 100 MG TAB PO SCH (20:10)
[2018-09-05] MEDS: SODIUM CHLORIDE 0.9% 1,000 ML IV SCH ×3 (04:08→21:05)
[2018-09-05] MEDS: PANTOPRAZOLE 40 MG TABLET PO SCH (06:46)
[2018-09-05] MEDS: CHLORTHALIDONE 25 MG TAB PO SCH (06:46)
[2018-09-05] MEDS: HALOPERIDOL 5 MG TAB PO SCH ×2 (06:46→21:06)
[2018-09-05] MEDS: CARVEDILOL 3.125 MG TAB PO SCH (06:46)
[2018-09-05 12:38] LABS: African American GFR (CKD) >90 (>60 ml/min/1.73 sqM); Anion Gap 13 mmol/L; Blood Urea Nitrogen 16 mg/dL (9-20); Calcium 9.6 mg/dL (8.4-10.2); Carbon Dioxide 25 mmol/L (22-30); Chloride 104 mmol/L (98-107); Creatine Kinase 252 U/L (55-170); Glucose 97 mg/dL (74-99); Sodium 142 mmol/L (137-145)
[2018-09-05 12:41] LABS: Potassium 4.9 mmol/L (3.5-5.1)
--- NOTE | 2018-09-05 13:30 | P.PN ---
Subjective Progress Note Date: 09/05/18 Principal diagnosis: Acute psychosis Patient was seen and examined. No acute events overnight. Help of spanish translator at bedside. He denies any chest pain, shortness of breath or palpitations. Objective - Vital Signs Vital signs: Vital Signs Temp 98.7 F 09/05/18 05:25 Pulse 110 H 09/05/18 05:25 Resp 22 09/05/18 05:25 BP 157/108 09/05/18 05:25 Pulse Ox 94 L 09/05/18 05:25 Intake & Output 09/04/18 09/05/18 09/05/18 18:59 06:59 18:59 Other: Voiding Method Toilet Toilet # Voids 2 1 2 - Exam General: [non toxic], [no distress], [appears at stated age] Derm: [warm], [dry] Head: [atraumatic], [normocephalic], [symmetric] Eyes: [EOMI], [no lid lag], [anicteric sclera] Mouth: [no lip lesion], [mucus membranes moist] Cardiovascular: [S1S2 reg], [tachycardia], [positive DP pulse bilateral], Lungs: [CTA bilateral], [no rhonchi, no rales] , [no accessory muscle use] Abdominal: [soft], [ nontender to palpation], [no guarding], [no appreciable organomegaly] Ext: [no gross muscle atrophy], [no edema], [no contractures] Neuro: [no focal neuro deficits] Psych: [Delusional thoughts, does not speak] - Labs CBC & Chem 7: 09/01/18 11:03 09/05/18 11:30 Labs: Abnormal Lab Results - Last 24 Hours (Table) 09/05/18 Range/Units 11:30 Creatine Kinase 252 H (55-170) U/L Assessment and Plan Assessment: Assessment and Plan 1. Bipolar type I disorder, manic episode 2. Elevated BP 3. Elevated CPK 4. Elevated LFT due to hepatic steatosis 5. Hyperlipidemia 1. Serum alcohol negative. UDS positive for marijuana. Plan: Evaluated by psychiatry, recommends transfer for inpatient psych due to weight limit. Continue Depakote, Haldol scheduled by mouth and IM deconoate and as needed for agitation or acute psychosis. Continue trazodone. Follow social work for transfer. 2. BP 158/108. Continue chlorthalidone. Discontinued amlodipine. Increase Coreg from 3.125-6.25 mg by mouth twice a day due to tachycardia. Monitor vitals, adjust medications as necessary. 3. CPK 484 - 397-252. Renal function within normal limits. Plan: Continue normal saline at 100 mL per. Daily BMP and CPK. 4. AST 80, ALT 161. Abdominal ultrasound shows hepatic steatosis. Plan: Adequate outpatient follow-up. Low-fat diet. 5. Lipid panel shows LDL of 105, HDL 37. Plan: Adequate outpatient follow-up. Low-fat diet. Patient admitted for acute psychotic episode. Evaluated by psychiatry, requires inpatient but needs transfer due to weight restriction. Social work and office manager receptionist following.
[2018-09-05] MEDS ORDERED: HALOPERIDOL DECANOATE 50 MG/ML 1 ML VIAL IM SCH (14:00)
--- NOTE | 2018-09-05 14:32 | P.PN ---
Progress Note - Text Progress Note Date: 09/05/18 Pyschiatry was contacted by medicine today to evalaute patient for psychosis. Please refer to 's consult notes dated 09/01/18 and 09/03/18 for complete details. 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 Patient stated that he cam to the hospital to protect himself from hell, Natz[place], technology and wizards. He stated he was born in [place] and lives with with is mother in [place]. He reports to have worked for [employer], in [place]. 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 He claims to have stopped taking his psychaitric medications an year ago due to having dry mouth and difficulty urinating. This is 28 year old obese male. He was sitting comfortably on his bed. He is dressed appropriately. He maintains good eye contact. No abnormal movements noted. He appears in fair grooming and hygiene. His thought process is tangential. He communicates to the interpretor with sign language who then translates it. He reports his mood to be happy and hopeful. His affect is appropriate. He stated his goal is to protect earth. He currently reports feeling safe to go home and says he will live with his mother for a while and then will live at a place where ever his tells him to go. He says he is to an Muslim girl called sonido. He reports seeing and talking to imaginary people. He reports feeling stressed, that some one is looking out for him and is getting closer and closer to him, is afraid that they will hurt him and will kill him. He however states that he is stronger than them and wont let anything happen to him. He denies current suicidal or homicidal ideations. He is alert and oriented X4, he was able to say he is at [facility], reported todays date as 2018. He was able to tell his Date of . His insight and judgement are improving and has agreed to take haldol decanoate injection to help him with his delusional thought process. He reports good sleep and appetite. Per unit staff patient has been cooperative with no violent or aggressive behaviors. Schizoaffective disorder. Will recommend increasing the dose of haldol to 5mg po bid. To be started on leonidas dol decanoate 50mg IM now and repeat it every 30 days to ensure medications compliance. He was explained about the benefits and risks of medications. He is willing to take haldol decanoate. To be started on cogentin 0.5mg po daily for EPS. Continue depakote, trazadone and melatonin.
[2018-09-05] MEDS: CARVEDILOL 6.25 MG TAB PO SCH (17:00)
[2018-09-05] MEDS ORDERED: BENZTROPINE MESYLATE 1 MG TAB PO SCH (21:00)
[2018-09-05] MEDS: MELATONIN 3 MG TABLET PO SCH (21:06)
[2018-09-05] MEDS: DIVALPROEX ER 250 MG TAB.ER.24H PO SCH (21:06)
[2018-09-05] MEDS: traZODone HCL 100 MG TAB PO SCH (21:06)
[2018-09-06] MEDS: BENZTROPINE MESYLATE 0.5 MG TAB PO SCH (07:28)
[2018-09-06] MEDS: PANTOPRAZOLE 40 MG TABLET PO SCH (07:28)
[2018-09-06] MEDS: CARVEDILOL 6.25 MG TAB PO SCH (07:28)
[2018-09-06] MEDS: SODIUM CHLORIDE 0.9% 1,000 ML IV SCH ×2 (07:29→17:23)
[2018-09-06] MEDS: CHLORTHALIDONE 25 MG TAB PO SCH (07:29)
[2018-09-06] MEDS: HALOPERIDOL 5 MG TAB PO SCH ×2 (07:29→20:55)
--- NOTE | 2018-09-06 09:48 | P.PN ---
Subjective Progress Note Date: 09/06/18 Principal diagnosis: Acute psychotic episode Patient was seen and examined. No acute events overnight. Mother is at bedside. Patient excited about his father's birthday. He denies any complaints at this time. Objective - Vital Signs Vital signs: Vital Signs Temp 99.0 F 09/06/18 06:00 Pulse 111 H 09/06/18 06:00 Resp 20 09/06/18 06:00 BP 168/83 09/06/18 06:00 Pulse Ox 95 09/06/18 07:40 Intake & Output 09/05/18 09/06/18 09/06/18 18:59 06:59 18:59 Other: # Voids 1 2 - Exam General: [non toxic], [no distress], [appears at stated age] Derm: [warm], [dry] Head: [atraumatic], [normocephalic], [symmetric] Eyes: [EOMI], [no lid lag], [anicteric sclera] Mouth: [no lip lesion], [mucus membranes moist] Cardiovascular: [S1S2 reg], [tachycardia], [positive DP pulse bilateral], Lungs: [CTA bilateral], [no rhonchi, no rales] , [no accessory muscle use] Abdominal: [soft], [ nontender to palpation], [no guarding], [no appreciable organomegaly] Ext: [no gross muscle atrophy], [no edema], [no contractures] Neuro: [no focal neuro deficits] Psych: [Delusional thoughts, does not speak] - Labs CBC & Chem 7: 09/01/18 11:03 09/05/18 11:30 Labs: Abnormal Lab Results - Last 24 Hours (Table) 09/05/18 Range/Units 11:30 Creatine Kinase 252 H (55-170) U/L Assessment and Plan Assessment: Assessment and Plan 1. Bipolar type I disorder, manic episode 2. Elevated BP 3. Elevated CPK 4. Elevated LFT due to hepatic steatosis 5. Hyperlipidemia 1. Serum alcohol negative. UDS positive for marijuana. Plan: Evaluated by psychiatry, recommends transfer for inpatient psych due to weight limit. Continue Depakote, Haldol scheduled by mouth and IM deconoate and as needed for agitation or acute psychosis. Continue trazodone. Follow social work for transfer. 2. BP 168/83. Continue chlorthalidone. Discontinued amlodipine. Increase Coreg from 3.125-6.25-12.5 mg by mouth twice a day due to tachycardia. Monitor vitals, adjust medications as necessary. 3. CPK 484 - 397-252. Renal function within normal limits. Plan: Continue normal saline at 100 mL per. Daily BMP and CPK. 4. AST 80, ALT 161. Abdominal ultrasound shows hepatic steatosis. Plan: Adequate outpatient follow-up. Low-fat diet. 5. Lipid panel shows LDL of 105, HDL 37. Plan: Adequate outpatient follow-up. Low-fat diet. Patient admitted for acute psychotic episode. Evaluated by psychiatry, requires inpatient but needs transfer due to weight restriction. Social work and facilities project manager following.
[2018-09-06] MEDS: CARVEDILOL 12.5 MG TAB PO SCH (17:23)
[2018-09-06] MEDS: traZODone HCL 100 MG TAB PO SCH (20:55)
[2018-09-06] MEDS: MELATONIN 3 MG TABLET PO SCH (20:55)
[2018-09-06] MEDS: DIVALPROEX ER 250 MG TAB.ER.24H PO SCH (20:55)
[2018-09-07] MEDS: SODIUM CHLORIDE 0.9% 1,000 ML IV SCH (03:57)
[2018-09-07] MEDS: CARVEDILOL 12.5 MG TAB PO SCH ×2 (07:02→16:40)
[2018-09-07] MEDS: HALOPERIDOL 5 MG TAB PO SCH ×2 (07:02→21:38)
[2018-09-07] MEDS: PANTOPRAZOLE 40 MG TABLET PO SCH (07:02)
[2018-09-07] MEDS: CHLORTHALIDONE 25 MG TAB PO SCH (07:02)
[2018-09-07] MEDS: BENZTROPINE MESYLATE 0.5 MG TAB PO SCH (07:02)
--- NOTE | 2018-09-07 10:19 | P.PN ---
Subjective Progress Note Date: 09/07/18 Principal diagnosis: Acute psychosis Patient was seen and examined. No acute events overnight. Patient continues to have delusional thoughts, however improved. Views the aid of a road sign installer. He has no complaints today. Objective - Vital Signs Vital signs: Vital Signs Temp 97.1 F L 09/07/18 05:19 Pulse 101 H 09/07/18 05:19 Resp 20 09/07/18 05:19 BP 178/83 09/07/18 05:19 Pulse Ox 94 L 09/07/18 05:19 Intake & Output 09/06/18 09/07/18 09/07/18 18:59 06:59 18:59 Intake Total 4200 Balance 4200 Intake: Oral 4200 Other: # Voids 3 2 - Exam General: [non toxic], [no distress], [appears at stated age] Derm: [warm], [dry] Head: [atraumatic], [normocephalic], [symmetric] Eyes: [EOMI], [no lid lag], [anicteric sclera] Mouth: [no lip lesion], [mucus membranes moist] Cardiovascular: [S1S2 reg], [tachycardia], [positive DP pulse bilateral], Lungs: [CTA bilateral], [no rhonchi, no rales] , [no accessory muscle use] Abdominal: [soft], [ nontender to palpation], [no guarding], [no appreciable organomegaly] Ext: [no gross muscle atrophy], [no edema], [no contractures] Neuro: [no focal neuro deficits] Psych: [Delusional thoughts, does not speak] - Labs CBC & Chem 7: 09/01/18 11:03 09/05/18 11:30 Assessment and Plan Assessment: Assessment and Plan 1. Bipolar type I disorder, manic episode 2. Elevated BP 3. Elevated CPK 4. Elevated LFT due to hepatic steatosis 5. Hyperlipidemia 1. Serum alcohol negative. UDS positive for marijuana. Plan: Evaluated by psychiatry, recommends transfer for inpatient psych due to weight limit. Continue Depakote, Haldol scheduled by mouth and IM deconoate and as needed for agitation or acute psychosis. Continue trazodone. Follow social work for transfer. 2. BP 178/83. Continue chlorthalidone. Discontinued amlodipine. Increase Coreg from 3.125-6.25-12.5 mg by mouth twice a day due to tachycardia. Monitor vitals, adjust medications as necessary. 3. CPK 484 - 397-252. Renal function within normal limits. Plan: DC IVF and encourage hydration by mouth. Daily BMP and CPK. 4. AST 80, ALT 161. Abdominal ultrasound shows hepatic steatosis. Plan: Adequate outpatient follow-up. Low-fat diet. 5. Lipid panel shows LDL of 105, HDL 37. Plan: Adequate outpatient follow-up. Low-fat diet. Patient admitted for acute psychotic episode. Evaluated by psychiatry, requires inpatient but needs transfer due to weight restriction. Social work and car rental agency manager following.
[2018-09-07] MEDS: MELATONIN 3 MG TABLET PO SCH (21:38)
[2018-09-07] MEDS: DIVALPROEX ER 250 MG TAB.ER.24H PO SCH (21:38)
[2018-09-07] MEDS: traZODone HCL 100 MG TAB PO SCH (21:38)
[2018-09-08] MEDS: HALOPERIDOL 5 MG TAB PO SCH ×2 (07:08→21:42)
[2018-09-08] MEDS: BENZTROPINE MESYLATE 0.5 MG TAB PO SCH (07:08)
[2018-09-08] MEDS: CHLORTHALIDONE 25 MG TAB PO SCH (07:08)
[2018-09-08] MEDS: CARVEDILOL 12.5 MG TAB PO SCH ×2 (07:08→16:09)
[2018-09-08] MEDS: PANTOPRAZOLE 40 MG TABLET PO SCH (07:08)
--- NOTE | 2018-09-08 09:09 | P.PN ---
Subjective Progress Note Date: 09/08/18 Principal diagnosis: Acute psychosis. Patient was communicated with the help of an service parts coordinator. Patient seen and examined. No acute events overnight. Patient no complaints. He denies any chest pain, shortness of breath or palpitations. Patient states his mood is improved since being hospitalized. Objective - Vital Signs Vital signs: Vital Signs Temp 98.4 F 09/08/18 05:59 Pulse 99 09/08/18 05:59 Resp 18 09/08/18 05:59 BP 150/86 09/08/18 05:59 Pulse Ox 95 09/08/18 05:59 Intake & Output 09/07/18 09/08/18 09/08/18 18:59 06:59 18:59 Intake Total 5420 960 Balance 5420 960 Intake: Oral 5420 960 Other: Voiding Method Toilet # Voids 5 1 - Exam General: [non toxic], [no distress], [appears at stated age] Derm: [warm], [dry] Head: [atraumatic], [normocephalic], [symmetric] Eyes: [EOMI], [no lid lag], [anicteric sclera] Mouth: [no lip lesion], [mucus membranes moist] Cardiovascular: [S1S2 reg], [tachycardia], [positive DP pulse bilateral], Lungs: [CTA bilateral], [no rhonchi, no rales] , [no accessory muscle use] Abdominal: [soft], [ nontender to palpation], [no guarding], [no appreciable organomegaly] Ext: [no gross muscle atrophy], [no edema], [no contractures] Neuro: [no focal neuro deficits] Psych: [Delusional thoughts, does not speak] - Labs CBC & Chem 7: 09/01/18 11:03 09/05/18 11:30 Assessment and Plan Assessment: Assessment and Plan 1. Bipolar type I disorder, manic episode 2. Elevated BP 3. Elevated CPK 4. Elevated LFT due to hepatic steatosis 5. Hyperlipidemia 1. Serum alcohol negative. UDS positive for marijuana. Plan: Evaluated by psychiatry, recommends transfer for inpatient psych due to weight limit. Continue Depakote, Haldol scheduled by mouth and IM deconoate and as needed for agitation or acute psychosis. Continue trazodone. Continue Cogentin. Follow social work for transfer. 2. BP 150/86. Continue chlorthalidone. Discontinued amlodipine. Increase Coreg from 3.125-6.25-12.5 mg by mouth twice a day due to tachycardia. Monitor vitals, adjust medications as necessary. 3. CPK 484 - 397-252. Renal function within normal limits. Plan: DC IVF and encourage hydration by mouth. Daily BMP and CPK. 4. AST 80, ALT 161. Abdominal ultrasound shows hepatic steatosis. Also might be related to Depakote. Plan: Adequate outpatient follow-up. Low-fat diet. Will discuss with psychiatry need to discontinue Depakote. 5. Lipid panel shows LDL of 105, HDL 37. Plan: Adequate outpatient follow-up. Low-fat diet. Patient admitted for acute psychotic episode. Evaluated by psychiatry, requires inpatient but needs transfer due to weight restriction. Social work and on site manager following.
--- NOTE | 2018-09-08 15:36 | P.PN ---
Progress Note - Text Progress Note Date: 09/08/18 Interval History: Patient is a 28-year-old male who I'm seeing in follow-up to a consultation, patient is being treated on the medical floor for mood disorder with manic features and psychotic features. Patient was seen with an emergency department technician as the patient is deaf and his mother was present during the interview as well. Patient continues to express that he has special brooks, is fearful of the "wizard", the 2 headed man and expresses other delusional ideation stating that he is Alonzo Kiko, that he needs to take care of the earth. Patient also states that he doesn't want to take medication he wants to go home so that he can eat correctly and take care of the earth, states that his back is bothering him and he doesn't want to be in the hospital. Per the patient's mother he had a similar episode to this a year ago at which time he was up for days on end without sleeping, pacing, could not sign fast enough to communicate with family members and was also expressing delusional ideation at that time. She states that the patient was placed on medications but did not take it on a regular basis was not hospitalized psychiatrically at that time and did not end up in outpatient psychiatric care on an ongoing basis. She reported that there been no prior episodes that were similar to this. Patient states that he is not hearing voices, he denied any suicidal or homicidal ideation at this time. He stated he sleeping about 6 hours a night and napping during the day and is feeling stressed. Mental Status: Appearance/Attitude: Patient is dressed in street clothes, sitting at the side of the bed, and emergency department technician was present and he was cooperative Behavior: Patient did not exhibit any psychomotor agitation or retardation Speech/Language: Patient was seen with a emergency department technician, at times she stated that she did not understand what the patient was signing to her at other times he was coherent Thought Process: Patient was not goal-directed at times his answers were not relevant Thought Content: Patient denied auditory or visual hallucinations and expressed delusional ideation regarding having special brooks, being Alonzo Kiko, fearing a wizard, talking about needing to take care of the earth. Suicidal/Homicidal Ideation: Patient denied any current suicidal or homicidal ideation Sensorium/Cognition: Patient was alert and oriented to person, place and time, further cognitive testing was not performed Mood/Affect: Patient's mood is expansive and labile and his affect is siobhan ropriate to his mood Insight/Judgment: Patient's insight and judgment are limited\\ Assessment: : The patient's mother he had no prior psychiatric symptoms other than the episode a year ago that lasted several months where he presented with similar symptoms that he is having now delusional ideation as well as increased energy and agitation she stated that the patient would be up for days on end wi thout sleeping and was eating inappropriately. At that time he was given medication Haldol however the patient did not take it on a regular basis. She attempted to get him follow-up at [facility] but was told that he was not ill enough to be seen there. Patient currently has been placed on Haldol 5 mg twice a day and received Haldol decanoate 50 mg on September 05 as well as having been placed on Depakote, trazodone and Cogentin. Per nursing staff the patient is less agitated, he continues to pace in the halls and is noticed to be talking to himself as he is pacing in the halls. Patient has been compliant taking his medications. Plan: patient will continue on the Haldol 5 mg twice a day as he only recently received a long-acting injectable Haldol. Patient can also continue on the trazodone 100 mg at bedtime to target his sleep and the Cogentin 0.5 mg to target side effects from Haldol. I will discontinue the Depakote as the patient's liver enzymes are elevated and continue to increase, will continue to evaluate the patient on Haldol if no further improvement will consider another loading dose of long-acting Haldol or changing to a different medication such as Abilify. I spoke with social work regarding attempting to find an inpatient psychiatric bed for this patient and to date they have been unsuccessful. I will continue to follow the patient while he is on the medical floor and adjust his medications accordingly.
[2018-09-08 15:51] VITALS: BMI 47.5
[2018-09-08] MEDS: ACETAMINOPHEN TAB 325 MG TAB PO PRN (17:03)
[2018-09-08] MEDS ORDERED: DIVALPROEX ER 500 MG TAB.ER.24H PO SCH (21:00)
[2018-09-08] MEDS: traZODone HCL 100 MG TAB PO SCH (21:42)
[2018-09-08] MEDS: MELATONIN 3 MG TABLET PO SCH (21:42)
[2018-09-09] MEDS: HALOPERIDOL 5 MG TAB PO SCH ×2 (08:37→21:35)
[2018-09-09] MEDS: CHLORTHALIDONE 25 MG TAB PO SCH (08:37)
[2018-09-09] MEDS: PANTOPRAZOLE 40 MG TABLET PO SCH (08:37)
[2018-09-09] MEDS: CARVEDILOL 12.5 MG TAB PO SCH ×2 (08:37→17:54)
[2018-09-09] MEDS: BENZTROPINE MESYLATE 0.5 MG TAB PO SCH (08:37)
[2018-09-09] MEDS ORDERED: HALOPERIDOL DECANOATE 50 MG/ML 1 ML VIAL IM STA (14:45)
--- NOTE | 2018-09-09 16:12 | P.PN ---
Progress Note - Text Progress Note Date: 09/09/18 Interval History: Patient is a 28-year-old male is being seen in follow-up to a consultation on the medical floor. Patient was seen with an automotive parts interpreter, his mother was also present during the interview. Patient states that he slept till about 3 AM last night and went to sleep at about 9 PM. During the interview the patient continues to express delusions regarding wizards,that there are evil people around, at one point telling me that Ke is still alive, describing himself as a conduit between Alonzo and God. Patient then stated that he doesn't have special brooks because Rosette now has them. He states that he has odd bodily sensations of being pulled and states that this is gone on for a number of years. Patient's mother again stated that the patient has never expressed these kinds of ideation she notices that he does talk to himself while she is been present during the day and that he does nap occasionally during the day but only for brief periods of time. Mental Status: Appearance/Attitude: Patient is neatly and appropriately dressed, makes eye contact and was cooperative Behavior: Patient is not exhibiting any psychomotor agitation or retardation Speech/Language: Patient communicates via sign language, he was coherent Thought Process: Patient at times was not goal-directed in his responses, as he seemed to be fixated on some of the delusional ideation that he was expressing. Thought Content: Patient denies visual hallucinations and states that he does communicate was Rosette and God, staff and his mother who observed him talking to himself, patient expresses delusions regarding eating a conduit between God and Alonzo, evil people in the world and other delusional content as described above. Patient has been sleeping until about 3 AM and his appetite is good Suicidal/Homicidal Ideation: Patient denies any current suicidal or homicidal ideation Sensorium/Cognition: Patient is alert and oriented to person, place, and time and his recent and remote memory appeared to be grossly intact Mood/Affect: Patient's mood is expansive and his affect is appropriate to his mood Insight/Judgment: Patient's insight and judgment are impaired Assessment: Patient continues to express delusional ideation, appears to be talking to himself however is not agitated or aggressive towards staff on the unit. He has made no attempt to leave the unit although he continues to verbalize his wish to leave the hospital and continue treatment as an outpatient. Patient is not sleeping through the night, his appetite is good and he is not reporting any side effects from the medication and none were noted on exam. I spoke with social work yesterday and they have been unable to obtain an inpatient psychiatric bed for this gentleman. Plan: Patient will continue on Haldol 5 mg twice a day and I will give another injection of Haldol decanoate 50 mg today as a loading dose. Patient also continue on the trazodone 100 mg at bedtime and melatonin to assist with his sleep. I discussed with the patient and his mother criteria for the patient to be released home as the patient does live on his own in an apartment. Will continue to follow the patient while he is on the inpatient unit and adjust his medication as needed
--- NOTE | 2018-09-09 18:11 | P.PN ---
Subjective Progress Note Date: 09/09/18 (Delayed charting seen at 8:20 AM) Principal diagnosis: Hallucination Patient is a 28-year-old male with a past medical history of bipolar disorder who was brought to the hospital by his mother due to to SARS behavior and hallucinations. In the ER he was found to have slightly elevated EKG and liver enzymes and therefore is admitted to the medical floor. He has been awaiting bed with the psychiatric unit for the last week. Patient seen and examined at bedside with nail maker present. He initially states he is feeling good. Denies any chest pain, shortness breath, nausea, or vomiting. He states he is feeling anxious and wants to be released from the hospital. He states that his hallucinations are better. But then he continues to perseverate on God and help out as his doctor and says he is healed, but we disagree. He is unsure if he should trust us because he believes in God and so does his family. He then switches to talking about the president which does not fit with the context of our conversation. Objective - Vital Signs Vital signs: Vital Signs Temp 98.5 F 09/09/18 14:43 Pulse 100 09/09/18 14:43 Resp 16 09/09/18 15:35 BP 126/86 09/09/18 14:43 Pulse Ox 94 L 09/09/18 14:43 Intake & Output 09/08/18 09/09/18 09/09/18 18:59 06:59 18:59 Intake Total 1200 Balance 1200 Weight 172.6 kg 174.4 kg Intake: Oral 1200 Other: Voiding Method Toilet Toilet # Voids 2 3 3 - Exam General: non toxic, no distress, appears at stated age Derm: warm, dry Head: atraumatic, normocephalic, symmetric Eyes: EOMI, no lid lag, anicteric sclera Mouth: no lip lesion, mucus membranes moist Cardiovascular: S1S2 reg, no murmur, positive posterior tibial pulse bilateral, Lungs: CTA bilateral, no rhonchi, no rales , no accessory muscle use Abdominal: soft, nontender to palpation, no guarding, no appreciable organomegaly Neuro: Face symmetrical, no facial droop, deaf, moving all 4 extremities i ndependently, normal gait Psych: Alert, oriented, appropriate affect - Labs CBC & Chem 7: 09/01/18 11:03 06/02/19 11:30 Assessment and Plan Assessment: Hypertension, newly diagnosed -Currently controlled continue with chlorthalidone and Coreg -Follow blood pressures Bipolar type I with manic episode -Management per psych: Currently on Cogentin, Haldol, and Desyrel -Unable to find psychiatric bed secondary to weight greater than 350 pounds Elevated liver enzymes secondary to hepatic steatosis -May also be related to Depakote which has been discontinued -Repeat lab in one week or as outpatient -Stable Morbid obesity BMI 48.1 -Outpatient structured weight loss LDL 105 -Within normal limits for patient with no additional risk factors -Continue low-fat diet Elevated CK, improved, no need to recheck DVT prophylaxis: ambulation Discussed with: patient with nail maker Anticipated discharge: as soon as bed available or stable for out patient treatment Anticipated discharge place: in patient psych A total of 20 minutes was spent on the care of this complex patient more than 50% of the time was spent in counseling and care coordination.
[2018-09-09] MEDS: MELATONIN 3 MG TABLET PO SCH (21:35)
[2018-09-09] MEDS: traZODone HCL 100 MG TAB PO SCH (21:35)
[2018-09-10] MEDS: PANTOPRAZOLE 40 MG TABLET PO SCH (08:35)
[2018-09-10] MEDS: CARVEDILOL 12.5 MG TAB PO SCH ×2 (08:35→17:07)
[2018-09-10] MEDS: CHLORTHALIDONE 25 MG TAB PO SCH (08:35)
[2018-09-10] MEDS: HALOPERIDOL 5 MG TAB PO SCH ×2 (08:35→22:24)
[2018-09-10] MEDS: BENZTROPINE MESYLATE 0.5 MG TAB PO SCH (08:36)
--- NOTE | 2018-09-10 15:04 | P.PN ---
Progress Note - Text Progress Note Date: 09/10/18 Interval History: Patient is a 28-year-old male is being seen in follow-up to a psychiatric consultation. Patient was seen and interviewed in his room with an senior structural engineer. No family members were present today. Patient was initially sleeping but easily awakened. Patient stated that he slept better last evening woke up throughout the night but stayed in bed until 6 this morning. Patient reports that he is feeling better today than yesterday. Patient has been eating, no agitation has been reported and the patient reports no complaints of side effects from the medication. Mental Status: Appearance/Attitude: Patient is neatly dressed, makes eye contact and is cooperative Behavior: Patient does not exhibit any psychomotor agitation or retardation Speech/Language: Patient uses sign language to communicate, per his senior structural engineer he is coherent at times not relevant and is more irrelevant in responses when I am questioning him and when she has conversations with him. Thought Process: Patient's responses are initially goal-directed and then become tangential and irrelevant Thought Content: Patient denies auditory or visual hallucinations and continues to express delusions regarding his , Rosette who has special brooks, he speaks about other friends, his acting as a conduit with God however per the senior structural engineer when she is conversing with him he is more relevant and coherent but does occasionally make comments that are not related to the conversation. Patient is eating well, patient was dozing today when I went to interview him on 2 occasions but is easily aroused, states that he is napping more today and states that his sleep improved last night staying in bed until 6 AM this morning but was up and down in the evening. Suicidal/Homicidal Ideation: Patient denies any current suicidal or homicidal ideation Sensorium/Cognition: Patient is alert and oriented to person, place, and time Mood/Affect: Patient's mood is cooperative and pleasant and his affect is appropriate to his mood Insight/Judgment: Patient's insight and judgment are limited Assessment: Patient appears to be slightly drowsy today on examination he has been in the past several days, he states that he stayed in bed until 6 AM this morning, states that his sleep was slightly improved last night. Patient continues to express delusional ideation and becomes tangential when speaking with him but remains coherent. He denies auditory hallucinations and denies any suicidal or homicidal ideation at this time. There've been no episodes of agitation or aggression. Patient has not attempted to leave the unit and has been compliant with medication. Patient received additional Haldol long-acting injection 50 mg yesterday for a total of 100 mg this week. Patient has no evidence of any side effects from the medication Plan: Patient continue on Haldol 5 mg twice a day, trazodone 1 mg at bedtime and Cogentin 0.5 mg at bedtime, patient has received a total of 100 mg of long- acting Haldol this week. Should the patient's sleep continued to improve over the week and and he is sleeping for a minimum of 6 hours, not expressing any suicidal or homicidal ideation and continued to be compliant with medications would consider that he may be ready for outpatient treatment. We will continue to evaluate patient while he is in the hospital.
--- NOTE | 2018-09-10 16:09 | P.PN ---
Subjective Progress Note Date: 09/10/18 Principal diagnosis: Hallucination Patient is a 28-year-old male with a past medical history of bipolar disorder who was brought to the hospital by his mother due to to SARS behavior and hallucinations. In the ER he was found to have slightly elevated EKG and liver enzymes and therefore is admitted to the medical floor. He has been awaiting bed with the psychiatric unit for the last week. Patient seen and examined at bedside. He denies and chest pain, SOB, or cons tipation. Wants psych meds decreased- told he would have to discuss with Dr. Kern. Continues to feel that he is very conected with God. Discussed at length that he is going to a new medical floor for the weekend. Objective - Vital Signs Vital signs: Vital Signs Temp 98.4 F 09/10/18 13:35 Pulse 95 09/10/18 13:35 Resp 18 09/10/18 13:35 BP 144/89 09/10/18 13:35 Pulse Ox 94 L 09/10/18 13:35 Intake & Output 09/09/18 09/10/18 09/10/18 18:59 06:59 18:59 Intake Total 1200 Balance 1200 Weight 175.4 kg 177 kg Intake: Oral 1200 Other: Voiding Method Toilet Toilet # Voids 3 4 4 - Exam General: non toxic, no distress, appears at stated age, obese Derm: warm, dry Head: atraumatic, normocephalic, symmetric Eyes: EOMI, no lid lag, anicteric sclera Mouth: no lip lesion, mucus membranes moist Cardiovascular: S1S2 reg, no murmur, positive posterior tibial pulse bilateral, Lungs: CTA bilateral, no rhonchi, no rales , no accessory muscle use Abdominal: soft, nontender to palpation, no guarding, no appreciable organomegaly Neuro: Face symmetrical, no facial droop, deaf, moving all 4 extremities independently, normal gait Psych: Alert, oriented, appropriate affect - Labs CBC & Chem 7: 09/01/18 11:03 09/05/18 11:30 Assessment and Plan Assessment: Hypertension, newly diagnosed -Currently controlled continue with chlorthalidone and Coreg -Follow blood pressures Bipolar type I with manic episode -Management per psych: Currently on Cogentin, Haldol, and Desyrel -Unable to find psychiatric bed secondary to weight greater than 350 pounds Elevated liver enzymes secondary to hepatic steatosis -May also be related to Depakote which has been discontinued -Repeat lab in one week or as outpatient -Stable Morbid obesity BMI 48.1 -Outpatient structured weight loss LDL 105 -Within normal limits for patient with no additional risk factors -Continue low-fat diet Elevated CK, improved, no need to recheck DVT prophylaxis: ambulation Discussed with: patient with social media strategist Anticipated discharge: as soon as bed available or stable for out patient treatment Anticipated discharge place: in patient psych A total of 20 minutes was spent on the care of this complex patient more than 50% of the time was spent in counseling and care coordination.
[2018-09-10 22:02] LABS: Basophils # (A) 0.1 k/uL (0-0.2); Basophils % (A) 1 %; Eosinophils # (A) 0.3 k/uL (0-0.7); Eosinophils % (A) 2 %; HCT 43.2 % (39.0-53.0); Lymphocytes # (A) 3.1 k/uL (1.0-4.8); Lymphocytes % (A) 28 %; MCH 31.8 pg (25.0-35.0); MCHC 34.8 g/dL (31.0-37.0); MCV 91.5 fL (80.0-100.0); Mean Platelet Volume 8.2; Monocytes % (A) 9 %; Neutrophils # (A) 6.5 k/uL (1.3-7.7); Neutrophils % (A) 58 %; Platelet Count 266 k/uL (150-450); RBC 4.72 m/uL (4.30-5.90); RDW 13.4 % (11.5-15.5); WBC 11.1 k/uL (3.8-10.6)
[2018-09-10] MEDS: MELATONIN 3 MG TABLET PO SCH (22:24)
[2018-09-10] MEDS: traZODone HCL 100 MG TAB PO SCH (22:24)
[2018-09-10 22:28] LABS: ALT 147 U/L (21-72); AST 70 U/L (17-59); African American GFR (CKD) >90 (>60 ml/min/1.73 sqM); Albumin 3.9 g/dL (3.5-5.0); Anion Gap 10 mmol/L; Blood Urea Nitrogen 14 mg/dL (9-20); Calcium 9.3 mg/dL (8.4-10.2); Carbon Dioxide 26 mmol/L (22-30); Chloride 104 mmol/L (98-107); Glucose 121 mg/dL (74-99); Sodium 140 mmol/L (137-145); Total Bilirubin 0.4 mg/dL (0.2-1.3); Total Protein 6.5 g/dL (6.3-8.2)
[2018-09-10 22:29] LABS: Alkaline Phosphatase 58 U/L (38-126)
[2018-09-11 07:02] LABS: African American GFR (CKD) >90 (>60 ml/min/1.73 sqM); Anion Gap 9 mmol/L; Carbon Dioxide 25 mmol/L (22-30); Chloride 106 mmol/L (98-107); Glucose 106 mg/dL (74-99); Sodium 140 mmol/L (137-145)
[2018-09-11 07:06] LABS: Potassium 4.7 mmol/L (3.5-5.1)
[2018-09-11 07:07] LABS: ALT 145 U/L (21-72); AST 77 U/L (17-59); Albumin 4.2 g/dL (3.5-5.0); Alkaline Phosphatase 47 U/L (38-126); Blood Urea Nitrogen 15 mg/dL (9-20)
[2018-09-11] MEDS: HALOPERIDOL 5 MG TAB PO SCH ×2 (09:17→22:13)
[2018-09-11] MEDS: BENZTROPINE MESYLATE 0.5 MG TAB PO SCH (09:17)
[2018-09-11] MEDS: PANTOPRAZOLE 40 MG TABLET PO SCH (09:17)
[2018-09-11] MEDS: CHLORTHALIDONE 25 MG TAB PO SCH (09:17)
[2018-09-11] MEDS: CARVEDILOL 12.5 MG TAB PO SCH ×2 (09:17→17:13)
--- NOTE | 2018-09-11 13:53 | P.PN ---
Subjective Progress Note Date: 09/11/18 Principal diagnosis: Hallucinations Patient is a 28-year-old male with a past medical history of bipolar disorder who was brought to the hospital by his mother due to to SARS behavior and hallucinations. In the ER he was found to have slightly elevated EKG and liver enzymes and therefore is admitted to the medical floor. He has been awaiting bed with the psychiatric unit for the last week, unable to be accepted at most places due to wieght limits. Has been giving loading dose of long acting haldol total of 100mg. Has been followed by psych closely. Tolerating trazodone and cogentin. Patient seen and examined at bedside. Feeling okay. No chest pain, sob, nausea + BM Objective - Vital Signs Vital signs: Vital Signs Temp 97.1 F L 09/11/18 07:34 Pulse 100 09/11/18 07:34 Resp 16 09/11/18 08:15 BP 128/74 09/11/18 07:34 Pulse Ox 94 L 09/11/18 07:34 Intake & Output 09/10/18 09/11/18 09/11/18 18:59 06:59 18:59 Intake Total 320 Balance 320 Weight 177 kg Intake: Oral 320 Other: Voiding Method Toilet # Voids 2 2 - Exam General: non toxic, no distress, appears at stated age, obese Derm: warm, dry Head: atraumatic, normocephalic, symmetric Eyes: EOMI, no lid lag, anicteric sclera Mouth: no lip lesion, mucus membranes moist Cardiovascular: S1S2 reg, no murmur, positive posterior tibial pulse bilateral, Lungs: CTA bilateral, no rhonchi, no rales , no accessory muscle use Psych: Alert, oriented, appropriate affect - Labs CBC & Chem 7: 09/10/18 20:54 09/11/18 06:11 Labs: Abnormal Lab Results - Last 24 Hours (Table) 09/10/18 09/10/18 09/11/18 Range/Units 20:54 20:54 06:11 WBC 11.1 H (3.8-10.6) k/uL Glucose 121 H 106 H (74-99) mg/dL AST 70 H 77 H (17-59) U/L ALT 147 H 145 H (21-72) U/L Assessment and Plan Assessment: Hypertension, newly diagnosed -Currently controlled continue with chlorthalidone and Coreg -Follow blood pressures Bipolar type I with manic episode -Management per psych: Currently on Cogentin, Haldol, and Desyrel -Unable to find psychiatric bed secondary to weight greater than 350 pounds Elevated liver enzymes secondary to hepatic steatosis -May also be related to Depakote which has been discontinued -Stable on repeat labs Morbid obesity BMI 48.1 -Outpatient structured weight loss LDL 105 -Within normal limits for patient with no additional risk factors -Continue low-fat diet Elevated CK, improved, no need to recheck DVT prophylaxis: ambulation Discussed with: patient with park interpreter Anticipated discharge: as soon as bed available or stable for out patient treatment Anticipated discharge place: in patient psych A total of 20 minutes was spent on the care of this complex patient more than 50% of the time was spent in counseling and care coordination.
[2018-09-11] MEDS: traZODone HCL 100 MG TAB PO SCH (22:13)
[2018-09-11] MEDS: MELATONIN 3 MG TABLET PO SCH (22:13)
[2018-09-12] MEDS: CARVEDILOL 12.5 MG TAB PO SCH ×2 (08:02→18:56)
[2018-09-12] MEDS: PANTOPRAZOLE 40 MG TABLET PO SCH (08:02)
[2018-09-12] MEDS: CHLORTHALIDONE 25 MG TAB PO SCH (09:12)
[2018-09-12] MEDS: BENZTROPINE MESYLATE 0.5 MG TAB PO SCH (09:12)
[2018-09-12] MEDS: HALOPERIDOL 5 MG TAB PO SCH ×2 (09:12→19:26)
--- NOTE | 2018-09-12 09:52 | P.PN ---
Subjective Progress Note Date: 09/12/18 Principal diagnosis: Hallucinations Patient is a 28-year-old male with a past medical history of bipolar disorder who was brought to the hospital by his mother due to to SARS behavior and hallucinations. In the ER he was found to have slightly elevated EKG and liver enzymes and therefore is admitted to the medical floor. He has been awaiting bed with the psychiatric unit for the last week, unable to be accepted at most places due to wieght limits. Has been giving loading dose of long acting haldol total of 100mg. Has been followed by psych closely. Tolerating trazodone and cogentin. Patient seen and examined at bedside. Feeling hot, no chest pain, slight SOB when hot, + BM yesterday, wants to shave. Objective - Vital Signs Vital signs: Vital Signs Temp 98.4 F 09/12/18 07:51 Pulse 82 09/12/18 07:51 Resp 16 09/12/18 07:51 BP 130/79 09/12/18 07:51 Pulse Ox 97 09/12/18 07:51 Intake & Output 09/11/18 09/12/18 09/12/18 18:59 06:59 18:59 Intake Total 960 Balance 960 Intake: Oral 960 Other: # Voids 3 - Exam General: non toxic, no distress, appears at stated age, obese Derm: warm, dry Head: atraumatic, normocephalic, symmetric Eyes: EOMI, no lid lag, anicteric sclera Mouth: no lip lesion, mucus membranes moist Cardiovascular: S1S2 reg, no murmur, positive posterior tibial pulse bilateral, Lungs: CTA bilateral, no rhonchi, no rales , no accessory muscle use Psych: Alert, oriented, appropriate affect - Labs CBC & Chem 7: 09/10/18 20:54 09/11/18 06:11 Assessment and Plan Assessment: Hypertension, newly diagnosed this admission -Currently controlled continue with chlorthalidone and Coreg -Follow blood pressures Bipolar type I with manic episode -Management per psych: Currently on Cogentin, Haldol, and Desyrel -Unable to find psychiatric bed secondary to weight greater than 350 pounds Elevated liver enzymes secondary to hepatic steatosis -May also be related to Depakote which has been discontinued -Stable on repeat labs Morbid obesity BMI 48.1 -Outpatient structured weight loss LDL 105 -Within normal limits for patient with no additional risk factors -Continue low-fat diet Elevated CK, improved, no need to recheck DVT prophylaxis: ambulation Discussed with: patient with it audit manager Anticipated discharge: as soon as bed available or stable for out patient treatment Anticipated discharge place: in patient psych A total of 20 minutes was spent on the care of this complex patient more than 50% of the time was spent in counseling and care coordination.
[2018-09-12] MEDS: traZODone HCL 100 MG TAB PO SCH (19:25)
[2018-09-12] MEDS: MELATONIN 3 MG TABLET PO SCH (19:26)
[2018-09-13 08:06] VITALS: BP 130/78; PULSE 102; RESP 14; TEMP 97.7
[2018-09-13] MEDS: PANTOPRAZOLE 40 MG TABLET PO SCH (08:43)
[2018-09-13] MEDS: HALOPERIDOL 5 MG TAB PO SCH (08:43)
[2018-09-13] MEDS: CHLORTHALIDONE 25 MG TAB PO SCH (08:43)
[2018-09-13] MEDS: BENZTROPINE MESYLATE 0.5 MG TAB PO SCH (08:43)
[2018-09-13] MEDS: CARVEDILOL 12.5 MG TAB PO SCH (08:44)
--- NOTE | 2018-09-13 14:36 | P.PN ---
Progress Note - Text Progress Note Date: 09/13/18 Interval History: Patient is a 28-year-old male who was seen today in his room with the structural biologist. Patient states that he is doing better and states that he is sleeping better at night, he states that he wakes up occasionally but has been able to return to sleep and has been sleeping more than 6 hours and states he got his best interest last evening. Patient reports that he is eating and has been walking in the halls. Patient did not spontaneously verbalize any delusional ideation until I specifically asked at this visit. When I asked the patient stated that he was chosen by God, states that he does have a good friend Rosette was here in spirit with him but he was hearing voices. Mental Status: Appearance/Attitude: Patient is appropriately dressed, makes eye contact and was cooperative and was seen with an structural biologist Behavior: Patient did not exhibit any psychomotor agitation or retardation Speech/Language: Patient was seen with an structural biologist, per the structural biologist he was coherent Thought Process: Per structural biologist the patient's responses were relevant and goal- directed Thought Content: Patient denied having any auditory or visual hallucinations and did not spontaneously verbalize delusional ideation unless I asked. Patient states that he was chosen by God to help people, states that he has a friend Rosette who is with him in spirit did state that he was to help save the world. He states he's been sleeping and eating. Suicidal/Homicidal Ideation: Patient denied any current suicidal or homicidal ideation Sensorium/Cognition: Patient was alert and oriented to person, place, and time Mood/Affect: Patient's mood is pleasant his affect is appropriate Insight/Judgment: Since insight and judgment are fair Assessment: Patient was seen with the structural biologist today and he did not spontaneously verbalize any delusional ideation and was not tangential during my interview as he has been on prior visits. Patient states that he is feeling much better, his sleep has improved and currently structural biologist she reported that the patient's conversations were relevant and coherent this weekend and he was not tangential. Patient has been compliant with his medications and per nursing have been no difficulties and the patient is not required any when necessary medication. Plan: Patient does not at this time require transfer to an inpatient psychiatric unit and can be discharged with outpatient psychiatric follow-up. I met with the patient, his mother and the structural biologist was present and discussed his discharge plans. Patient will be living with his mother on a temporary basis, he will continue on Haldol 5 mg twice a day, Cogentin 0.5 mg at bedtime and trazodone 100 mg at bedtime as well as melatonin 3 mg at bedtime. Patient will be due for his next Haldol decanoate dose of 100 mg on October 06. Patient will be following up with [facility] and has an appointment this September 17 for an intake. Patient was encouraged to be compliant with his medications and follow-up appointments.
--- NOTE | 2018-09-13 16:27 | P.DS ---
Providers Date of admission: 09/01/18 12:33 Expected date of discharge: 09/13/18 Attending physician: Adelita Liang MD Consults: 08/30/18 20:02 Consult Physician Stat Consulting Provider: Nicholas Bradley Consult Reason/Comments: pyschosis, hallucination Do you want consulting provider notified?: Yes 09/07/18 18:27 Consult Physician Routine Consulting Provider: Nighat Kern Consult Reason/Comments: revaulation for IP admission Do you want consulting provider notified?: Yes 09/08/18 08:32 Consult Physician Urgent Consulting Provider: Nighat Kern Consult Reason/Comments: wants to talk to a doctor about his thoughts and new medication Do you want consulting provider notified?: Already Contacted Primary care physician: Stated None Hospital Course: Discharge Diagnosis: Delusions possible bipolar disorder with liudmila Hypertension Elevated liver enzymes secondary to hepatic steatosis Morbid obesity with BMI 40.1 Elevated CK Hospital Course: Patient is a 28-year-old male with a past medical history of bipolar disorder who was brought to the hospital by his mother due to to [place] behavior and hallucinations. In the ER he was found to have slightly elevated Ammonia and liver enzymes and therefore was admitted to the medical floor. He underwent head CT which showed no acute process. He underwent abdominal ultrasound which showed hepatic steatosis. He was seen by psychiatry and determined appropriate for inpatient psychiatric hospitalization. However due to his weight gain greater than 350 pounds we were not testifying placement at a psychiatric bed. He was therefore started on treatment during his acute hospitalization. He was seen by psychiatry on a regular basis. After optimization of his treatment regimen with loading doses of Haldol followed by oral Haldol, trazodone, and Cogentin he had greatly improved. His delusions were much improved. His tangential thinking had normalized. He was feeling much better. Psychiatry determined that he was stable for discharge home. He will follow up with [facility] on September 17 for an intake, He is due for his next dose of Haldol decanoate 100mg on October 06 . He was given a 30 day supply of his medications. He will establish with Dr. Alberto as a PCP for follow-up on his elevated blood pressures. Patient seen and examined at bedside. Thank you for this filing which manager relocation. He reports that his anxiety is much improved. His chest pain and shortness of breath is improved. Nausea and vomiting is improved. Vital signs reviewed and stable. General: non toxic, no distress, appears at stated age Derm: warm, dry Head: atraumatic, normocephalic, symmetric Eyes: EOMI, no lid lag, anicteric sclera Mouth: no lip lesion, mucus membranes moist Cardiovascular: S1S2 reg, no murmur, positive posterior tibial pulse bilateral, Lungs: CTA bilateral, no rhonchi, no rales , no accessory muscle use Abdominal: soft, nontender to palpation, no guarding, no appreciable organomegaly Psych: Alert, oriented, appropriate affect A total of 35 minutes of time were spent preparing this complex discharge summary . Pertinent Studies: as outlined above in hospital course Patient Condition at Discharge: Stable Plan - Discharge Summary Discharge Rx Participant: No New Discharge Prescriptions: New Benztropine Mesylate [Cogentin] 0.5 mg PO DAILY #30 tab Carvedilol [Coreg*] 12.5 mg PO BID-W/MEALS #60 tab traZODone HCL [Desyrel] 100 mg PO HS #30 tab Haloperidol [Haldol] 5 mg PO BID #60 tab Chlorthalidone [Hygroton] 25 mg PO DAILY #30 tab Melatonin 3 mg PO HS #30 tablet Discharge Medication List Benztropine Mesylate [Cogentin] 0.5 mg PO DAILY #30 tab 09/13/18 [Rx] Carvedilol [Coreg*] 12.5 mg PO BID-W/MEALS #60 tab 09/13/18 [Rx] Chlorthalidone [Hygroton] 25 mg PO DAILY #30 tab 09/13/18 [Rx] Haloperidol [Haldol] 5 mg PO BID #60 tab 09/13/18 [Rx] Melatonin 3 mg PO HS #30 tablet 09/13/18 [Rx] traZODone HCL [Desyrel] 100 mg PO HS #30 tab 09/13/18 [Rx] Follow up Appointment(s)/Referral(s): [facility] [Outside] - 09/17/18 12:30 pm (Outpatient Counseling Appointment with Stacey Cruz at 1:00pm - arrive early for initial paperwork. Please bring hospital discharge paperwork to appointment. ) None,Stated [Primary Care Provider] - 1-2 days Cornel Alberto DO [REFERRING] - 1 Week Patient Instructions/Handouts: Bipolar Disorder (DC) Activity/Diet/Wound Care/Special Instructions: Diet: heart healthy Activity: as tolerated Discharge Disposition: HOME SELF-CARE
== END 2018-09-13 16:26 | disposition home or self-care (01) | DRG 885 ==
LOC: EC 16:11 → 4MS4W 19:52 → OBSVTOIN 09-01 12:33 → 4SSUR 09-10 13:52
PROVIDERS: ADMIT Internal Medicine; ATTEND Internal Medicine
DX: F31.2 Bipolar disorder, current episode manic severe with psychotic features (principal); Z68.42 Body mass index [BMI] 45.0-49.9, adult; E66.01 Morbid (severe) obesity due to excess calories; E78.5 Hyperlipidemia, unspecified; F17.210 Nicotine dependence, cigarettes, uncomplicated; F41.9 Anxiety disorder, unspecified; H91.3 Deaf nonspeaking, not elsewhere classified; I10 Essential (primary) hypertension; K21.9 Gastro-esophageal reflux disease without esophagitis; K76.0 Fatty (change of) liver, not elsewhere classified; R74.8 Abnormal levels of other serum enzymes; Z86.61 Personal history of infections of the central nervous system; Z88.1 Allergy status to other antibiotic agents; R07.9 Chest pain, unspecified; R11.2 Nausea with vomiting, unspecified
CPT/HCPCS: 36415; 70450; 71046; 76705; 80048; 80053; 80061; 80306; 80320; 80329; 81003; 82140; 82550; 83036; 83520; 84484; 85025; 85610; 85730; 93005; 94760; 96360; 96361; 99285